=== PATIENT | male | born 1940 | race Caucasian/White ===

== ENCOUNTER 2016-11-18 15:31 | Inpatient (IN) ==
[2016-11-18] MEDS ORDERED: SODIUM CHLORIDE 0.9% 500 ML IV STA (16:10)
[2016-11-18] MEDS ORDERED: PANTOPRAZOLE 40 MG VIAL IV STA (16:10)
[2016-11-18] MEDS ORDERED: ONDANSETRON 4 MG/2 ML VIAL IV STA (16:10)
--- NOTE | 2016-11-18 16:16 | Emergency Department Note ---
Arrival - Arrival Chief Complaint: Non-Specific Stated Complaint: LOW BLOOD ED Nursing Triage Note: WAS CALLED BY DR FARMER TO COME TO ER DUE TO ABNORMAL LABS. HX GI BLEED FROM BEING ON ELIQUIS. PT DENIES HEMATOCHEZIA Mode of Arrival: Wheelchair Limitations: No Limitations Source: Patient Time Seen by Provider: 11/18/16 16:07 - History of Present Illness HPI Narrative: This 75-year-old white male presents with a history of recurrent severe anemia suspected from GI blood loss although a source is yet to be found per Dr. Farmer and the patient presents on referral from his office because of abnormal blood work. The patient reports significant problems with extreme weakness, dyspnea on exertion, intermittent rapid heart rates as well as a history of colon polypectomy in the distant past. In regards to his arrhythmias, the patient has chronic atrial fibrillation previously on Eliquis which had to be ceased because of recurrent blood loss. The patient denies any chest pain, diaphoresis, nausea, or vomiting in association with these episodes. He does relate that there is been difficulty in controlling his rhythm over the last several months although today he has not experienced any problems. At rest in bed he appears pale but in no acute medical distress. Onset (ago): month(s) (Patient presents with recurrent problems with blood count referred by Dr. Farmer's office) Allergies/Adverse Reactions: Allergies Allergy/AdvReac Type Severity Reaction Status Date / Time No Known Allergies Allergy Verified 11/18/16 15:38 Home Medications: Home Medications Medication Instructions Recorded Confirmed Type Acetaminophen Tab [Tylenol Tab] 500 mg PO BID 04/22/16 11/18/16 History Ascorbic Acid [Vitamin C] 1,000 mg PO QAM 04/22/16 11/18/16 History Aspirin [Ecotrin] 81 mg PO QAM 04/22/16 11/18/16 History Atenolol 12.5 mg PO QPM 04/22/16 11/18/16 History Atorvastatin Calcium 40 mg PO QPM 04/22/16 11/18/16 History Cyanocobalamin (Vitamin B-12) 1,000 mcg PO QAM 04/22/16 11/18/16 History [Vitamin B-12] Multivitamin [Multivitamins] 1 each PO QAM 04/22/16 11/18/16 History [place]-3 Fatty Acids [Fish Oil 2,000 mg PO QAM 04/22/16 11/18/16 History Concentrate] Furosemide [Furosemide] 20 mg PO 1400 11/18/16 11/18/16 History Furosemide [Furosemide] 40 mg PO QAM 11/18/16 11/18/16 History Magnesium Oxide [Magox 400] 400 mg PO QAM 11/18/16 11/18/16 History Metformin HCl [Metformin HCl] 1,000 mg PO BID 11/18/16 11/18/16 History Sitagliptin Phosphate [Januvia] 50 mg PO QAM 11/18/16 11/18/16 History Vitamin E Acetate [Vitamin E] 1,000 unit PO QAM 11/18/16 11/18/16 History Review of System - Review of System 12 point system: reviewed and no additional remarkable complaints except as stated - Review of System Constitutional: Present: as per HPI Respiratory: Present: as per HPI Cardiovascular: Present: as per HPI Gastrointestinal: Present: as per HPI Medical,Surgical,& Family Hx - Medical History Cardio: History of: Cardiac Dysrhythmia (atrial fibrillation onset 03/2016), Hypertension (5 years), Cardiovascular Problems (Pt was Cardioverted on 04/08/[address] Abraham in [place], [place]) Neurology: No history of: Seizures Endocrine: History of: Diabetes Mellitus (NIDDM) (20 years) Gastrointestinal: History of: Polyps (colonoscopy one year ago) - Surgical History Cardiac Surgeries: Sugical HX of: Cardiac Surgery (2007 aortocoronary bypass grafting) Orthopedic Surgeries: Surgical HX of;: Spinal Surgery (lumbar disc) - Family History Family History: Reports;: Family Diabetes, Family Heart Disease (mother, brother ), Family Hypertension (brother), Family Stroke (mother) - Social History Smoking Status: Never smoker Exam Physical Examination: GENERAL: Well developed, well nourished pale white male in no acute distress. HEENT: Normocephalic. No trauma. Moist but extremely pale mucous membranes. EOMI. PERRLA. ENT NML NECK: Supple. No adenopathy. CARDIAC: Irregular. No murmurs. Heart rate 70 CHEST: Clear to auscultation. No respiratory distress. O2 sat 97% ABDOMEN: Soft. Nontender. Active bowel sounds. EXTREMITIES: No trauma. Normal ROM. No pedal edema. SKIN: No diaphoresis. No rash. Extreme pale pallor. NEURO: Alert. Neuro intact. no focal deficits. Vital Signs: Vital Signs Temperature 100 F H 11/18/16 15:35 Pulse Rate 70 11/18/16 15:35 Respiratory Rate 18 11/18/16 16:35 Blood Pressure 117/68 11/18/16 15:35 O2 Sat by Pulse Oximetry 100 11/18/16 16:35 Course - Reevaluation(s) Reevaluation #1: Advised patient for need for hospitalization given his anemia, congestive heart failure, pneumonia. - Consultations Consultation #1: Discussed with hospitalist service who will admit for further evaluation treatment. Results - Labs CBC & BMP: 11/18/16 16:41 11/18/16 16:41 Labs: I reviewed the laboratory and noted the depressed hematocrit and borderline white blood cell count as well as negative cardiac's. - Diagnostic Findings Procedure: Chest x-ray: image reviewed by me, report reviewed by me ( Cardiomegaly with evidence of decompensation as well as left lower lobe infiltrate) Disposition Clinical Impression: Left lower lobe pneumonia, Recurrent severe anemia, CHF, Atrial fibrillation Case discussed with: patient, patient's family Disposition: Still a Patient Condition: Guarded Time of Disposition: 17:25
[2016-11-18] MEDS ORDERED: PANTOPRAZOLE 40 MG VIAL IV ONE (16:24)
[2016-11-18] MEDS ORDERED: ONDANSETRON 4 MG/2 ML VIAL ONE (16:24)
--- NOTE | 2016-11-18 16:30 | XRay Report ---
XR chest 1V portable Indication: Shortness of breath. Chest one view: Comparison 04/22/2016. Implanted electronic device is now present left chest wall. Mild cardiomegaly is worse than previous with increased diffuse interstitial prominence of the lungs. Additionally, asymmetric patchy infiltrate left lung base has progressed, but was somewhat present on the prior exam as well. Subpleural septal thickening noted. Impression: 1. CHF decompensation. 2. Left basilar pneumonia versus confluent fibrosis. PROCEDURE INTERPRETED AT [facility] DEPARTMENT OF RADIOLOGY Final Report Signed by: Mark Chery M.D.
[2016-11-18] MEDS ORDERED: LEVOFLOXACIN INJ 750 MG in PREMIX 1 EACH IV STA (16:46)
[2016-11-18 16:50] LABS: Basophils # 0.1 10*3/uL (0.0-0.2); Basophils % 0.5 % (0.0-0.8); Eosinophils # 0.4 10*3/uL (0.0-0.87); Eosinophils % 3.6 % (0.00-10.9); Hematocrit 24.4 VOL% (42.0-52.0); Hemoglobin 7.6 GM/DL (14.0-18.0); Immature Granulocytes % 0.4 %; Immature Granulocytes Absolute 0.04 #; Lymphocytes # 1.3 10*3/uL (1.4-4.0); Mean Corpuscular HGB Conc 31.1 GM/DL (32-36); Mean Corpuscular Hemoglobin 21 PG (27-34); Mean Corpuscular Volume 67.6 FL (87-102); Mean Platelet Volume 9.7 FL (9.6-12.0); Monocytes # 1.4 10*3/uL (0.11-0.8); NRBC # 0.02 10*3/uL; Neutrophils % 68.5 % (38.7-73.9); Platelet Count 349 T/CUMM (130-400); Red Blood Count 3.61 MC/CUMM (3.8-5.5); White Blood Count 10.2 T/CUMM (4-12)
[2016-11-18 17:12] LABS: INR 1.1; PT Patient Result 11.8 SECS; Partial Thromboplastin Time 30.3 SECS (0-40)
[2016-11-18] MEDS ORDERED: methylPREDNISolone SOD SUC 125 MG/2 ML VIAL IV STA (17:15)
[2016-11-18] MEDS ORDERED: ALBUTEROL/IPRATROPIUM 3 ML NEB RESP TX STA (17:15)
[2016-11-18 17:19] LABS: Alanine Aminotransferase 26 U/L (16-61); Albumin 2.9 G/DL (3.4-5.0); Alkaline Phosphatase 96 U/L (45-117); Aspartate Amino Transferase 18 U/L (0-37); Blood Urea Nitrogen 22 MG/DL (7-18); Calcium 8.7 MG/DL (8.5-10.1); Glucose 142 MG/DL (74-106); Osmolality,Calculated 268.5 MOS/KG (273-304); Potassium 3.6 MMOL/L (3.5-5.1); Sodium 132 MMOL/L (136-145); Troponin I Only 0.033 NG/ML (0.00-0.045)
[2016-11-18] MEDS ORDERED: methylPREDNISolone SOD SUC 125 MG/2 ML VIAL ONE (17:44)
[2016-11-18] MEDS ORDERED: LEVOFLOXACIN INJ 150 ML IV ONE (17:44)
[2016-11-18] MEDS ORDERED: SODIUM CHLORIDE 0.9% 250 ML IV PRN (18:03)
--- NOTE | 2016-11-18 18:13 | Hospitalist History & Physical ---
Assessment and Plan (1) Anemia Status: Acute Assessment and plan: In recent months, the patient has had multiple episodes of recurrent severe anemia that is highly suspected to be originating from a gastrointestinal source however, the source that she had to be found. The patient is followed in the outpatient setting by Dr. Sandro Lund. The patient's atrial fibrillation had been previously managed with the use of Eliquis however, due to recurrent blood loss his Eliquis has been discontinued. The patient reported a gradual onset of extreme weakness and dyspnea on exertion. The patient also reported intermittent episodes of rapid heartbeat in recent days. We will type and screen and transfuse blood products. We will consult gastroenterology to evaluate. Current Visit: No Qualifiers: Anemia type: other cause (2) Chronic atrial fibrillation Status: Chronic Assessment and plan: Patient has chronic atrial fibrillation. He had been previously managed with Eliquis but developed multiple issues of gastrointestinal bleeding without a clear source of origin. We will place the patient on the telemetry unit and monitor closely during the clinical encounter. Current Visit: No History of Present Illness Chief complaint: Abnormal labs History of present illness: This is a chronically ill 75-year-old male that presented to the ED at [facility] this afternoon for further evaluation of his abnormal labs. Patient has a medical history significant for hypertension, atrial fibrillation, [id number] diabetes mellitus, and colon polyps. Patient has a surgical history significant for coronary artery bypass grafting, internal cardiac monitoring device placement, colonoscopy, lumbar disc discectomy. In recent months, the patient has had multiple episodes of recurrent severe anemia that is highly suspected to be originating from a gastrointestinal source however, the source that she had to be found. The patient is followed in the outpatient setting by Dr. Sandro Lund. The patient' s atrial fibrillation had been previously managed with the use of Eliquis however, due to recurrent blood loss his Eliquis has been discontinued. The patient reported a gradual onset of extreme weakness and dyspnea on exertion. The patient also reported intermittent episodes of rapid heartbeat in recent days. The patient reports that he was contacted by Dr. Lund's office today and told that he is blood counts were low and that he needed to present to the ED for further evaluation. The patient was assessed at the time of ED presentation. The patient was noted to be febrile with a temperature recorded at 100.0. Labs were obtained which were remarkable for hemoglobin 7.6, hematocrit 24.4, sodium 132, chloride 97, BUN 22, creatinine 1.70, and glucose at 142. Chest x-ray reported congestive heart failure decompensation and left basilar pneumonia versus confluent fibrosis. After brief discussion with both Dr. Maldonado and Dr. Castelan, the patient will be admitted to the hospitalist service for continuation of care. A gastrointestinal consultation with Dr. Sandro Lund will be requested. The patient's home medications have been reviewed and reconciled. The patient's CODE STATUS has been discussed; the patient is a FULL CODE. Home Medications Medication Instructions Recorded Confirmed Type Acetaminophen Tab [Tylenol Tab] 500 mg PO BID 04/22/16 11/18/16 History Ascorbic Acid [Vitamin C] 1,000 mg PO QAM 04/22/16 11/18/16 History Aspirin [Ecotrin] 81 mg PO QAM 04/22/16 11/18/16 History Atenolol 12.5 mg PO QPM 04/22/16 11/18/16 History Atorvastatin Calcium 40 mg PO QPM 04/22/16 11/18/16 History Cyanocobalamin (Vitamin B-12) 1,000 mcg PO QAM 04/22/16 11/18/16 History [Vitamin B-12] Multivitamin [Multivitamins] 1 each PO QAM 04/22/16 11/18/16 History [place]-3 Fatty Acids [Fish Oil 2,000 mg PO QAM 04/22/16 11/18/16 History Concentrate] Furosemide [Furosemide] 20 mg PO 1400 11/18/16 11/18/16 History Furosemide [Furosemide] 40 mg PO QAM 11/18/16 11/18/16 History Magnesium Oxide [Magox 400] 400 mg PO QAM 11/18/16 11/18/16 History Metformin HCl [Metformin HCl] 1,000 mg PO BID 11/18/16 11/18/16 History Sitagliptin Phosphate [Januvia] 50 mg PO QAM 11/18/16 11/18/16 History Vitamin E Acetate [Vitamin E] 1,000 unit PO QAM 11/18/16 11/18/16 History Allergies Allergy/AdvReac Type Severity Reaction Status Date / Time No Known Allergies Allergy Verified 11/18/16 15:38 Medical,Surgical,& Family Hx - Medical History Cardio: History of: Cardiac Dysrhythmia (atrial fibrillation onset 03/2016), Hypertension (5 years), Cardiovascular Problems (Pt was Cardioverted on 04/08/[address] Abraham in [place], [place]) Neurology: No history of: Seizures Endocrine: History of: Diabetes Mellitus (NIDDM) (20 years) Gastrointestinal: History of: Polyps (colonoscopy one year ago) - Surgical History Cardiac Surgeries: Sugical HX of: Cardiac Surgery (2008 aortocoronary bypass grafting) Orthopedic Surgeries: Surgical HX of;: Spinal Surgery (lumbar disc) - Family History Family History: Reports;: Family Diabetes, Family Heart Disease (mother, brother ), Family Hypertension (brother), Family Stroke (mother) - Social History Smoking Status: Never smoker 12 point system: reviewed and no additional remarkable complaints except as stated Exam - Constitutional Vitals: Period Temp Pulse Resp BP Sys/Patino Pulse Ox Last 24 Hr 100 F 70 18-18 117/68 97-100 General appearance: normal weight, no acute distress - Head Head exam: Present: normal inspection, normocephalic, atraumatic - Eye Eye exam: Present: EOMI. Absent: conjunctival injection Pupils: Present: KEM, normal accommodation - ENT ENT exam: Present: normal exam, normal external ear exam, normal oropharynx - Neck Neck exam: Present: normal inspection. Absent: lymphadenopathy, meningismus, thyromegaly - Respiratory Respiratory exam: Present: clear to auscultation bilaterally. Absent: rales, rhonchi, stridor, wheezes - Cardiovascular Cardiovascular exam: Present: regular rate and rhythm - GI/Abdominal GI/Abdominal exam: Present: normal bowel sounds, distended, soft - Extremities Exam Extremities exam: Present: normal inspection, normal capillary refill, full ROM. Absent: edema - Back Exam Back exam: Present: normal inspection - Neurological Exam Neurological exam: Present: alert, oriented X3, CN II-XII intact - Psychiatric Psychiatric exam: Present: normal affect, normal mood - Skin Skin exam: Present: warm, pallor Results - Labs CBC & BMP: 11/18/16 16:41 11/18/16 16:41 Lab Results: I have reviewed the past 24 hour labs
[2016-11-18] MEDS ORDERED: ONDANSETRON 4 MG/2 ML VIAL IV PRN (18:59)
[2016-11-18] MEDS: metFORMIN 500 MG TABLET PO SCH (21:24)
[2016-11-18] MEDS: ACETAMINOPHEN 500 MG TABLET PO SCH (21:25)
[2016-11-18] MEDS: ATORVASTATIN 40 MG TABLET PO SCH (21:25)
[2016-11-18] MEDS: ATENOLOL 25 MG TABLET PO SCH (21:28)
[2016-11-19 06:14] LABS: Basophils % 0.1 % (0.0-0.8); Hematocrit 24.6 VOL% (42.0-52.0); Hemoglobin 7.6 GM/DL (14.0-18.0); Immature Granulocytes % 1.3 %; Immature Granulocytes Absolute 0.15 #; Lymphocytes # 0.5 10*3/uL (1.4-4.0); Lymphocytes % 4.3 % (21.2-54.2); Mean Corpuscular HGB Conc 30.9 GM/DL (32-36); Mean Corpuscular Hemoglobin 22 PG (27-34); Mean Corpuscular Volume 70.1 FL (87-102); Mean Platelet Volume 9.8 FL (9.6-12.0); Monocytes # 0.1 10*3/uL (0.11-0.8); Monocytes % 0.6 % (1.7-12.7); Neutrophils # 10.8 10*3/uL (1.4-7.4); Neutrophils % 93.7 % (38.7-73.9); Platelet Count 318 T/CUMM (130-400); Red Blood Count 3.51 MC/CUMM (3.8-5.5); Red Cell Distribution Width 18.4 % (9.3-17.3); White Blood Count 11.5 T/CUMM (4-12)
--- NOTE | 2016-11-19 06:40 | Gastrointestinal Consult Note ---
Assessment and Plan (1) Iron deficiency anemia Status: Chronic Assessment and plan: Unfortunately I am not completely sure why this is occurring, he could be a problem with iron absorption, the fact that we discontinued his iron as an outpatient, the fact that he remains on aspirin with ongoing GI losses that cannot be appreciated by upper endoscopy or lower endoscopy or capsule is a possibility as well. The patient could have a blood dyscrasia with his bone marrow as well. He appears to be classically iron deficient. We will check this with iron studies once more. Suggest an iron infusion this admission in addition to the blood transfusion. Once iron studies are back we will order a iron dextran infusion prior to going home. Would like to get his old records from [place] to see if things have dropped since his fiberglass laminator saw him last, last week. We discontinued the patient from his Eliquis and had hoped that this would take care of the problem after 08/14/16, apparently did not. Again see the HPI for full GI workup up to this point including upper and lower endoscopy and capsule endoscopy. Current Visit: No (2) Gastritis determined by endoscopy Status: Acute Assessment and plan: See HPI above, this is being treated with Protonix on a daily basis. His medication list does not reflect this but the patient states that he is taking this at home. We will discontinue aspirin now. Current Visit: No (3) Personal history of colonic polyps Status: Acute Assessment and plan: The patient does not require repeat colonoscopy until 2019 for the adenoma seen. Previous colonoscopy did not show any bleeding lesions. Current Visit: No (4) Chronic GERD Status: Chronic Assessment and plan: Again this is being treated with Protonix on a daily basis. Current Visit: No History of Present Illness Chief complaint: Unexplained drop in patient's hematocrit after unremarkable GI workup History of present illness: Mr. Colin is a 75 year old male whose last hematocrit last checked on 05/14/16, to 35.1% with a hemoglobin of 11.5 g/dL and he was stopped off of his iron and continue on his Prilosec daily controlling his reflux symptoms. Previous hematocrit has remained at 34.1% on 07/28/[address] Zaidi. The patient's hematocrit dropped down to 27.7% with a hemoglobin of 8.8 g/dL back on 08/14/16 with an MCV of 83.7. We asked him to return again today for recheck. He has not noticed any further rectal bleeding. He was restarted on his Eliquis in May by his fiberglass laminator Dr. Abraham in [place]. He does have some nonspecific gastritis as well as mild duodenitis that was shown to be negative for Helicobacter pylori and celiac sprue. His last upper endoscopy was 04/25/16 and his last colonoscopy had been on 06/08/15 and showed adenomatous polyps that will require repeat colonoscopy in 3 years i.e. May 2018. Tubular adenomas were noted in the cecum, descending and sigmoid regions of the colon. There was no bleeding noted. The patient had his last capsule endoscopy done on 05/19/16 at which time slow stomach emptying was noted at 2 hours and 15 minutes with moderate gastritis and metaplasia in the stomach but otherwise normal-appearing small bowel throughout its entirety. At this point we are not sure with the bleeding is coming from. We can go up on his acid suppression but there is little else to do at this point, other than stopping the Eliquis if his hematocrit has dropped. It appears the patient has been started on his aspirin again and this could certainly be discontinued. He will need to be restarted on his iron with either ferrous gluconate 325 mg 3 times daily or Nu-iron 150 mg po BID, and will probably need to take this for the rest of his life. Possible causes include Dieulafoy's lesion and ongoing upper GI bleeding from his gastritis possibly, although this was pretty mild on his check during upper endoscopy and capsule endoscopy. It might be worthwhile to consider bone marrow biopsy as well since he has not seen any jose bleeding and has dropped his hematocrit down this far, especially now that his stools been checked and found to be heme negative and if the reticulocyte count and iron stores blood tests we do today are normal are not elevated and low respectively. Home Medications Medication Instructions Recorded Confirmed Type Acetaminophen Tab [Tylenol Tab] 500 mg PO BID 04/22/16 11/18/16 History Ascorbic Acid [Vitamin C] 1,000 mg PO QAM 04/22/16 11/18/16 History Aspirin [Ecotrin] 81 mg PO QAM 04/22/16 11/18/16 History Atenolol 12.5 mg PO QPM 04/22/16 11/18/16 History Atorvastatin Calcium 40 mg PO QPM 04/22/16 11/18/16 History Cyanocobalamin (Vitamin B-12) 1,000 mcg PO QAM 04/22/16 11/18/16 History [Vitamin B-12] Multivitamin [Multivitamins] 1 each PO QAM 04/22/16 11/18/16 History [place]-3 Fatty Acids [Fish Oil 2,000 mg PO QAM 04/22/16 11/18/16 History Concentrate] Furosemide [Furosemide] 20 mg PO 1400 11/18/16 11/18/16 History Furosemide [Furosemide] 40 mg PO QAM 11/18/16 11/18/16 History Magnesium Oxide [Magox 400] 400 mg PO QAM 11/18/16 11/18/16 History Metformin HCl [Metformin HCl] 1,000 mg PO BID 11/18/16 11/18/16 History Sitagliptin Phosphate [Januvia] 50 mg PO QAM 11/18/16 11/18/16 History Vitamin E Acetate [Vitamin E] 1,000 unit PO QAM 11/18/16 11/18/16 History Allergies Allergy/AdvReac Type Severity Reaction Status Date / Time No Known Allergies Allergy Verified 11/18/16 15:38 Medical,Surgical,& Family Hx - Medical History Cardio: History of: Cardiac Dysrhythmia (atrial fibrillation onset 03/2016), Hypertension (5 years), Cardiovascular Problems (Pt was Cardioverted on 04/08/[address] Abraham in [place], [place]) Neurology: No history of: Seizures Endocrine: History of: Diabetes Mellitus (NIDDM) (20 years) Respiratory: History of: Pneumonia Gastrointestinal: History of: Polyps (colonoscopy one year ago) Musculoskeletal: History of: Back/Neck Problems (back surgery at 18) Hematology: History of: Anemia - Surgical History Cardiac Surgeries: Sugical HX of: Cardiac Surgery (2008 aortocoronary bypass grafting) Orthopedic Surgeries: Surgical HX of;: Spinal Surgery (lumbar disc) - Family History Family History: Reports;: Family Diabetes, Family Heart Disease (mother, brother ), Family Hypertension (brother), Family Stroke (mother) - Social History Smoking Status: Former smoker Frequency of Alcohol Use: Frequently Type of Drug Use: None Review of systems: Constitutional: Denies fever, chills, nausea, and vomiting. Positive for significant fatigue and some dizziness Eyes: Denies dry eyes, and scleral icterus HENT: Denies headaches Cardiovascular: Denies acute chest pain and claudication Respiratory: Mild dyspnea on exertion but no resting shortness of breath, wheezing, and difficulty breathing, denies cough Gastrointestinal: As noted in the HPI Genitourinary: Denies dysuria and hematuria Neurologic: Denies vision loss, and loss of sensation Musculoskeletal: He does have some minimal joint stiffness, and muscular weakness, no swelling Psychiatric: Denies depression and sofía symptoms Heme-Lymph: Denies easy bruising, lymph node enlargement or tenderness, night sweats, excessive bleeding Allergies-immunologic: Denies pruritus and rhinorrhea Exam - Constitutional Vitals: Period Temp Pulse Resp BP Sys/Patino Pulse Ox Last 24 Hr 98 F-100 F 66-75 16-20 109-135/55-75 95-100 General appearance: no acute distress Exam: Constitutional: Well-developed, well-nourished, alert, and in no acute distress Head and face: Head: Normocephalic atraumatic Eyes: Conjunctiva without injection, no gross scleral icterus, pupils equal and round bilaterally Ears: Intact to conversation in both ears Nose: External appearance is normal, nares patent Mouth: Oral mucous membranes moist without erythema dentition noted to be without erosion Neck: Normal appearance, no masses or tenderness, trachea midline Thyroid: Gland midline and appropriate size for age Respiratory: Normal respiratory effort, clear to auscultation without wheezes, rhonchi or rales Cardiovascular: Regular rate and rhythm, normal S1, S2, the exam is without rubs, murmurs or gallops. Gastrointestinal: Nontender to palpation, abdomen mildly distended with gas but normal active bowel sounds, tone normal without rigidity or guarding, no masses present, no hepatomegaly, no spleen tip felt. Rectal examination shows good tone no external fissures or fistulas stool present brown guaiac negative Lymphatic: Neck without adenopathy, axilla without lymphadenopathy present Musculoskeletal: Right and left lower extremities without evidence of edema Skin and subcutaneous tissue: No rashes or ulcerations noted, normal skin turgor, digits and nails without clubbing/cyanosis/deformities. Neurologic: The patient is grossly oriented to person place and time, cranial nerves show tongue movements are normal with normal tongue extrusion midline, light touch sensation is intact. Psychiatric: No hallucinations or delusions are present, does not appear depressed Results - Labs CBC & BMP: 11/19/16 05:56 11/18/16 16:41 Quality Measures - VTE Contraindication to Pharmacological VTE Prophylaxis: Active Bleeding
[2016-11-19 06:46] LABS: Band Neutrophils 2 % (0-10); Burr Cells Slight; Giant Platelets Few; Hypochromasia 1+; Lymphocytes 6 % (20-55); Nucleated Red Blood Cells 1 (0-5); Ovalocytes Slight; Platelet Estimate Adequate; Segmented Neutrophils 92 % (50-85); Total Cells Counted 100
[2016-11-19 06:47] LABS: Microcytosis Slight
[2016-11-19 06:51] LABS: Calcium 8.5 MG/DL (8.5-10.1); Magnesium 2.1 MG/DL (1.8-2.4); Osmolality,Calculated 274.5 MOS/KG (273-304); Potassium 4.1 MMOL/L (3.5-5.1); Troponin I Only 0.021 NG/ML (0.00-0.045)
[2016-11-19 07:19] LABS: % Iron Saturation 2.9 % (18-50)
[2016-11-19] MEDS ORDERED: ASPIRIN EC 81 MG TABLET PO SCH (09:00)
[2016-11-19] MEDS: PANTOPRAZOLE 40 MG TABLET PO SCH (09:09)
[2016-11-19] MEDS: FUROSEMIDE 40 MG TABLET PO SCH ×2 (09:09→15:58)
[2016-11-19] MEDS: MULTIVITAMIN (CENTRUM) TABLET PO SCH (09:09)
[2016-11-19] MEDS: CYANOCOBALAMIN 500 MCG TABLET PO SCH (09:10)
[2016-11-19] MEDS: OMEGA 3 ACID ETHYL ESTERS 1 GM CAPSULE PO SCH (09:10)
[2016-11-19] MEDS: ASCORBIC ACID 500 MG TABLET PO SCH (09:10)
[2016-11-19] MEDS: ACETAMINOPHEN 500 MG TABLET PO SCH ×2 (09:10→21:12)
[2016-11-19] MEDS: VITAMIN E 1000 UNIT CAPSULE PO SCH (09:10)
[2016-11-19] MEDS: sitaGLIPtin 25 MG TABLET PO SCH (09:11)
[2016-11-19] MEDS: metFORMIN 500 MG TABLET PO SCH ×2 (09:11→21:12)
[2016-11-19] MEDS: MAGNESIUM OXIDE 400 MG TABLET PO SCH (09:12)
--- NOTE | 2016-11-19 12:43 | Hospitalist Progress Note ---
Assessment and Plan (1) Iron deficiency anemia Status: Chronic Assessment and plan: Dr Lund has ordered an infusion of iron. He has received 1 of 2 units of PRBC at this time. 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 Stopped Eliquis in july at time of GIB. Stopping asa today. He takes PPI at home. Consider outpatient heme workup. afib is rate controlled. Current Visit: No (2) Chronic atrial fibrillation Status: Chronic Current Visit: No (3) Personal history of colonic polyps Status: Acute Current Visit: No (4) Chronic GERD Status: Chronic Current Visit: No (5) Diabetes Status: Chronic Current Visit: No Hospitalist: Subjective Interval history: Mr Colin was feeling well when I was him this morning. He reported being hungry and I have ordered a diet for him since he will not have procedures today. He has had some dizziness intermittently prior to admission which he ascribed to his afib, but was able to go to [place] on business yesterday without a problem. He came to the hospital when he got the message from Dr Rosa to go to hospital for anemia. He has had exhaustive GI work up a few months ago. Stool is guaiac negative here and he has not seen any blood in his stool. He may need hematology eval as outpatient. Exam - Constitutional Vitals: Period Temp Pulse Resp BP Sys/Patino Pulse Ox Last 24 Hr 97 F-100 F 60-75 16-20 109-146/55-79 95-100 General appearance: normal weight, no acute distress - Eye Eye exam: Present: EOMI. Absent: scleral icterus - Respiratory Respiratory exam: Present: clear to auscultation bilaterally - Cardiovascular Cardiovascular exam: Present: regular rate and rhythm - GI/Abdominal GI/Abdominal exam: Present: normal bowel sounds, soft. Absent: tenderness - Extremities Exam Extremities exam: Absent: edema Results - Labs CBC & BMP: 11/19/16 05:56 11/19/16 05:56 Lab Results: I have reviewed the past 24 hour labs Quality Measures - VTE Contraindication to Pharmacological VTE Prophylaxis: Active Bleeding
[2016-11-19 14:58] LABS: Hemoglobin 8.3 GM/DL (14.0-18.0)
[2016-11-19] MEDS ORDERED: IRON DEXTRAN 25 MG in SYRINGE 1 EACH IV ONE (17:30)
[2016-11-19] MEDS ORDERED: IRON DEXTRAN 2,000 MG in SODIUM CHLORIDE 0.9% 500 ML IV ONE (17:30)
[2016-11-19] MEDS: ATENOLOL 25 MG TABLET PO SCH (18:09)
[2016-11-19] MEDS: ATORVASTATIN 40 MG TABLET PO SCH (18:09)
--- NOTE | 2016-11-20 07:00 | Gastrointestinal Progress Note ---
Assessment and Plan (1) Iron deficiency anemia Status: Chronic Assessment and plan: Unfortunately I am not completely sure why this is occurring, he could be a problem with iron absorption, the fact that we discontinued his iron as an outpatient, the fact that he remains on aspirin with ongoing GI losses that cannot be appreciated by upper endoscopy or lower endoscopy or capsule is a possibility as well. The patient could have a blood dyscrasia with his bone marrow as well. He appears to be classically iron deficient. We will check this with iron studies once more. Suggest an iron infusion this admission in addition to the blood transfusion. Once iron studies are back we will order a iron dextran infusion prior to going home. 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 We discontinued the patient from his Eliquis and had hoped that this would take care of the problem after 08/14/16, apparently did not. Again see the HPI for full GI workup up to this point including upper and lower endoscopy and capsule endoscopy. 11/20/16--Iron studies were quite low with a iron saturation of only 3%. Again I am not completely sure why this is occurring given the findings from upper endoscopy, capsule endoscopy and colonoscopy. I am going to write him a prescription for both Nexium which is stronger than the omeprazole that he is on as well as a Nu-iron to be taken for the next 3 months. I am hoping that between the iron dextran infusion in the Nu-Iron should be able to maintain his iron saturation, we will recheck him in 3 months likely. We will see the patient back in 1 month in my clinic to recheck his hematocrit at that time. The prescriptions are in the front of the chart. Will sign off at this time as he is stable from a GI standpoint for discharge. If he is continued to lose blood when I see him next, I may consider repeating the upper endoscopy. Current Visit: No (2) Gastritis determined by endoscopy Status: Acute Assessment and plan: See HPI above, this is being treated with Protonix on a daily basis. His medication list does not reflect this but the patient states that he is taking this at home. We will discontinue aspirin now. 11/20/16--Patient needs to be left off his aspirin and Eliquis, and start taking the Nexium instead of his omeprazole and restart iron in the form of Nu-iron Current Visit: No (3) Personal history of colonic polyps Status: Acute Assessment and plan: The patient does not require repeat colonoscopy until 2019 for the adenoma seen. Previous colonoscopy did not show any bleeding lesions. 11/20/16--As above. Current Visit: No (4) Chronic GERD Status: Chronic Assessment and plan: Again this is being treated with omeprazole on a daily basis. 11/20/16--advance this patient to Nexium 40 mg p.o. 30 minutes prior to suppertime. Prescription written and left in the front of the chart for the patient's discharge. Current Visit: No Gastroenterology - PN: Subj Interval history: Appreciate Dr. Mendoza getting the iron dextran and orders for this patient and infused. He tolerated the infusion well, he feels slightly under the weather from his pneumonia and has a slight wheeze this more but is eating well and defecating well. His hematocrit improved from 24% to 27% with the blood transfusion. From a GI standpoint he can likely be discharged at this time. Exam (Progress Note) - Constitutional Vitals: Period Temp Pulse Resp BP Sys/Patino Pulse Ox Last 24 Hr 97 F-98.4 F 55-70 16-94 106-146/55-79 94-100 General appearance: no acute distress - Head Head exam: Present: normocephalic - Eye Eye exam: Present: EOMI - Respiratory Respiratory exam: Present: wheezes - Cardiovascular Cardiovascular exam: Present: regular rate and rhythm - GI/Abdominal GI/Abdominal exam: Present: normal bowel sounds, soft. Absent: distended, guarding, tenderness, rebound - Extremities Exam Extremities exam: Absent: edema - Neurological Exam Neurological exam: Present: alert, oriented X3 - Psychiatric Psychiatric exam: Present: normal affect, normal mood - Skin Skin exam: Present: warm Results - Labs CBC & BMP: 11/19/16 14:44 11/19/16 05:56
[2016-11-20] MEDS: ASCORBIC ACID 500 MG TABLET PO SCH (09:19)
[2016-11-20] MEDS: CYANOCOBALAMIN 500 MCG TABLET PO SCH (09:19)
[2016-11-20] MEDS: MULTIVITAMIN (CENTRUM) TABLET PO SCH (09:19)
[2016-11-20] MEDS: ACETAMINOPHEN 500 MG TABLET PO SCH (09:20)
[2016-11-20] MEDS: sitaGLIPtin 25 MG TABLET PO SCH (09:20)
[2016-11-20] MEDS: MAGNESIUM OXIDE 400 MG TABLET PO SCH (09:20)
[2016-11-20] MEDS: FUROSEMIDE 40 MG TABLET PO SCH ×2 (09:20→15:19)
[2016-11-20] MEDS: OMEGA 3 ACID ETHYL ESTERS 1 GM CAPSULE PO SCH (09:20)
[2016-11-20] MEDS: metFORMIN 500 MG TABLET PO SCH (09:20)
[2016-11-20] MEDS: PANTOPRAZOLE 40 MG TABLET PO SCH (09:20)
[2016-11-20] MEDS: VITAMIN E 1000 UNIT CAPSULE PO SCH (09:21)
--- NOTE | 2016-11-20 10:15 | Discharge Summary ---
Hospital Course - Hospital Course Hospital Course: 75-year-old white male with history of hypertension, hyperlipidemia, CHF, A. fib not on anticoagulation, history of severe anemia and diabetes admitted by the hospitalist service on 11/18/[address] Lund has followed the patient previously and he was consulted to assist. Dr. Lund has performed upper endoscopy, capsule endoscopy and colonoscopy on the patient with no clear findings of anemia. Patient's iron studies are low with an iron saturation of only 3%. Patient did receive an iron transfusion on this admission in addition to blood transfusion. Dr. Lund has recommended Nexium and Nu-iron to be taken for the next [address] Lund will follow him up in his clinic in 1 month with an H&H at that time. Patient was on Eliquis at one time but this has been stopped. He also continues to take an aspirin and this is also been held. Patient feels better and he has had no signs of bleeding. He will be discharged home with medicines and follow-up with Dr. Lund as mentioned above. Would also recommend a follow-up with a breast worker in 1-2 weeks for evaluation. We will set this up upon discharge. Complete discharge instructions were given to the patient and his in the room. Care coordination, chart review, and completed discharge paperwork took approximately 42 minutes. - Time spent with patient Time with patient DS: Greater than 30 minutes Diagnosis - Discharge Diagnosis (1) Chronic atrial fibrillation Status: Chronic (2) Iron deficiency anemia Status: Acute (3) Diabetes Status: Chronic Discharge Plan - Discharge Data Disposition: Disch To Home/Self Care Condition at Discharge: Stable Discharge Diet: diabetic diet Activity: resume usual activities as tolerated Driving: no restrictions Contact your physician if you experience:: fever over 101, Shortness of breath, Bleeding - Discharge Medications New Esomeprazole Magnesium [Nexium] 40 mg PO DAILY #120 capsule Continue Acetaminophen Tab [Tylenol Tab] 500 mg PO BID Ascorbic Acid [Vitamin C] 1,000 mg PO QAM Cyanocobalamin (Vitamin B-12) [Vitamin B-12] 1,000 mcg PO QAM Multivitamin [Multivitamins] 1 each PO QAM Furosemide 20 mg PO 1400 Metformin HCl 1,000 mg PO BID Vitamin E Acetate [Vitamin E] 1,000 unit PO QAM [place]-3 Fatty Acids [Fish Oil Concentrate] 2,000 mg PO QPM Sitagliptin Phosphate [Januvia] 25 mg PO QAM Discontinued Aspirin [Ecotrin] 81 mg PO QPM - Follow Up or Referral Follow Up: Sandro Lund MD [Physician] - 1 Month (w hgb/hct) [facility] [Provider Group] (follow up w any breast worker in 1-2wks for severe anemia) - Forms/Instructions Exam - Constitutional Vitals: Period Temp Pulse Resp BP Sys/Patino Pulse Ox Last 24 Hr 97 F-98.4 F 45-66 16-94 106-146/53-79 92-100 Exam: 75-year-old white male, no acute distress, alert and oriented Chest clear CV irregularly irregular Abdomen soft and nontender Extremities no edema Discharge Results Procedures and tests throughout hospitalization: Pending Orders 11/18/16 18:07 Blood Culture Stat Labs on day of discharge: Labs from last 24 hours 11/20/16 11/19/16 11/19/16 07:36 20:12 16:11 Hgb Hct POC Glucose 153 H 238 H 245 H Blood Type Antibody Screen Crossmatch Blood Bank Comment 11/19/16 11/19/16 11/18/16 14:44 12:01 16:41 Hgb 8.3 L Hct 27.0 L POC Glucose 289 H Blood Type Cancelled Antibody Screen Cancelled Crossmatch See Detail Blood Bank Comment Cancelled Preliminary micro results at discharge 11/18/16 18:07 Blood Culture - Preliminary Blood No growth at 1 day 11/18/16 18:09 Blood Culture - Preliminary Blood No growth at 1 day DS: Provider Date of admission: 11/18/16 17:30 Primary care physician: Troy Zaidi DO Attending physician on admission: Tay Renee MD Discharging clinician: RADHA Castellano Expected date of discharge: 11/20/16
[2016-11-20 11:54] VITALS: BP 125/60
== END 2016-11-20 14:37 | disposition home or self-care (01) | DRG 811 ==
LOC: N.ED 15:31 → SUATTDRO 17:30 → N.EDINP 17:30 → N.TELEN 19:48
PROVIDERS: ADMIT Family Medicine; ATTEND Internal Medicine

== ENCOUNTER 2018-03-28 02:53 | Inpatient (IN) ==
[2018-03-28] MEDS ORDERED: FUROSEMIDE 40 MG/4 ML VIAL IV STA (03:25)
[2018-03-28 03:33] LABS: Basophils # 0.1 10*3/uL (0.0-0.2); Basophils % 0.7 % (0.0-0.8); Eosinophils # 0.2 10*3/uL (0.0-0.87); Eosinophils % 2.6 % (0.00-10.9); Hematocrit 23.7 VOL% (42.0-52.0); Hemoglobin 6.8 GM/DL (14.0-18.0); Immature Granulocytes % 0.5 %; Immature Granulocytes Absolute 0.04 #; Lymphocytes # 0.9 10*3/uL (1.4-4.0); Lymphocytes % 10.6 % (21.2-54.2); Mean Corpuscular HGB Conc 28.7 GM/DL (32-36); Mean Corpuscular Hemoglobin 19 PG (27-34); Mean Corpuscular Volume 65.1 FL (87-102); Mean Platelet Volume 9.6 FL (9.6-12.0); Monocytes % 11.5 % (1.7-12.7); NRBC # 0.04 10*3/uL; Neutrophils # 6.3 10*3/uL (1.4-7.4); Neutrophils % 74.1 % (38.7-73.9); Platelet Count 256 T/CUMM (130-400); Red Blood Count 3.64 MC/CUMM (3.8-5.5); Red Cell Distribution Width 18.4 % (9.3-17.3); White Blood Count 8.5 T/CUMM (4-12)
[2018-03-28 03:52] LABS: Albumin 2.8 G/DL (3.4-5.0); Bilirubin,Total 0.5 MG/DL (0.2-1.0); Calcium 8.6 MG/DL (8.5-10.1); Osmolality,Calculated 263.9 MOS/KG (273-304); Potassium 4.6 MMOL/L (3.5-5.1); Total Protein 7.3 G/DL (6.4-8.3)
[2018-03-28 03:58] LABS: Hypochromasia 2+
[2018-03-28 03:59] LABS: Acanthocytes Few; Schistocytes Few
[2018-03-28 04:00] LABS: Elliptocytes 1+; Poikilocytosis 2+
[2018-03-28 04:11] LABS: Anisocytosis 2+
[2018-03-28 04:12] LABS: Microcytosis 1+; Platelet Estimate Normal; Target Cells Few
[2018-03-28 06:40] LABS: Apearance,Urine CLEAR (Clear); Bacteria,Urine Occasional /HPF (Few); Bilirubin,Urine Negative (Negative); Blood, Urine Negative (Negative); Glucose,Urine (UA) Negative (Negative); Ketones,Urine Negative (Negative); Mucus,Urine Occasional /LPF (Occasional); Nitrite,Urine Negative (Negative); Protein,Urine Negative; RBC,Urine 2 /HPF (0-4); Urine Color Yellow (Yellow); Urine Specific Gravity 1.005 (1.001-1.035); Urine Urobilinogen < 2.0 EU/DL (0.2-1.0); WBC,Urine <1 /HPF (0-6)
[2018-03-28 06:56] LABS: Barbiturates Screen,Urine Negative (Negative); Benzodiazepines Screen,Urine Negative (Negative); Cannabinoid Screen,Urine Positive (Negative); Opiate Screen,Urine Negative (Negative); Phencyclidine Screen,Urine Negative (Negative)
[2018-03-28] MEDS ORDERED: DEXTROSE 50% 25 GM/50 ML VIAL IV PRN ×2 (08:18→14:37)
[2018-03-28] MEDS ORDERED: ACETAMINOPHEN 325 MG TABLET PO PRN (08:18)
[2018-03-28] MEDS ORDERED: GLUCAGON 1 MG VIAL IM PRN ×2 (08:18→14:37)
[2018-03-28] MEDS ORDERED: SODIUM CHLORIDE 0.9% 1,000 ML IV PRN (08:22)
[2018-03-28] MEDS ORDERED: chlordiazePOXIDE 10 MG CAPSULE PO PRN (08:28)
[2018-03-28] MEDS ORDERED: PANTOPRAZOLE 40 MG TABLET PO SCH (09:00)
[2018-03-28] MEDS ORDERED: MULTIVITAMIN (CENTRUM) TABLET PO SCH (09:00)
[2018-03-28] MEDS: THIAMINE 200 MG/2 ML VIAL IV SCH (10:35)
[2018-03-28] MEDS: INSULIN REGULAR 100 UNIT/ML SUBCUT SCH ×3 (16:43→22:03)
[2018-03-28] MEDS: PANTOPRAZOLE 40 MG TABLET PO SCH (16:44)
[2018-03-28 17:22] LABS: Basophils # 0.1 10*3/uL (0.0-0.2); Basophils % 0.6 % (0.0-0.8); Eosinophils # 0.2 10*3/uL (0.0-0.87); Eosinophils % 2.3 % (0.00-10.9); Hematocrit 25.6 VOL% (42.0-52.0); Hemoglobin 7.5 GM/DL (14.0-18.0); Immature Granulocytes % 0.3 %; Immature Granulocytes Absolute 0.03 #; Lymphocytes # 0.8 10*3/uL (1.4-4.0); Mean Corpuscular HGB Conc 29.3 GM/DL (32-36); Mean Corpuscular Hemoglobin 19 PG (27-34); Mean Corpuscular Volume 65.3 FL (87-102); Mean Platelet Volume 9.7 FL (9.6-12.0); Monocytes # 1.2 10*3/uL (0.11-0.8); Monocytes % 13.5 % (1.7-12.7); NRBC # 0.02 10*3/uL; Neutrophils # 6.5 10*3/uL (1.4-7.4); Neutrophils % 74.3 % (38.7-73.9); Platelet Count 261 T/CUMM (130-400); Red Blood Count 3.92 MC/CUMM (3.8-5.5); Red Cell Distribution Width 19.9 % (9.3-17.3); White Blood Count 8.8 T/CUMM (4-12)
[2018-03-28 17:52] LABS: Folate > 24.0 NG/ML (5.4-24.0); Vitamin B12 1967 PG/ML (211-911)
[2018-03-28 18:17] LABS: Anisocytosis 1+; Hypochromasia 1+; Poikilocytosis 1+; Target Cells 1+
[2018-03-28 18:18] LABS: Elliptocytes Few; Platelet Estimate Adequate; Schistocytes Few
[2018-03-28 18:25] LABS: Sedimentation Rate-Westergren 24 MM/HR (0-20)
[2018-03-28] MEDS: GABAPENTIN 100 MG CAPSULE PO SCH (21:39)
[2018-03-28] MEDS: MAGNESIUM OXIDE 400 MG TABLET PO SCH (21:39)
[2018-03-28] MEDS: OMEGA 3 ACID ETHYL ESTERS 1 GM CAPSULE PO SCH (21:39)
[2018-03-28] MEDS: metFORMIN 500 MG TABLET PO SCH (21:39)
[2018-03-28] MEDS: ACETAMINOPHEN 500 MG TABLET PO SCH (21:40)
[2018-03-28] MEDS: POTASSIUM CHLORIDE 10 MEQ TABLET PO SCH (21:40)
[2018-03-29 05:29] LABS: Basophils # 0.1 10*3/uL (0.0-0.2); Eosinophils # 0.3 10*3/uL (0.0-0.87); Eosinophils % 3.5 % (0.00-10.9); Hematocrit 26.2 VOL% (42.0-52.0); Hemoglobin 7.8 GM/DL (14.0-18.0); Immature Granulocytes % 0.4 %; Immature Granulocytes Absolute 0.03 #; Lymphocytes # 1.1 10*3/uL (1.4-4.0); Lymphocytes % 12.7 % (21.2-54.2); Mean Corpuscular HGB Conc 29.8 GM/DL (32-36); Mean Corpuscular Hemoglobin 20 PG (27-34); Mean Corpuscular Volume 66.3 FL (87-102); Mean Platelet Volume 9.7 FL (9.6-12.0); Monocytes # 1.1 10*3/uL (0.11-0.8); Monocytes % 13.2 % (1.7-12.7); NRBC # 0.02 10*3/uL; Neutrophils # 5.7 10*3/uL (1.4-7.4); Neutrophils % 69.2 % (38.7-73.9); Platelet Count 240 T/CUMM (130-400); Red Blood Count 3.95 MC/CUMM (3.8-5.5); Red Cell Distribution Width 20.6 % (9.3-17.3); White Blood Count 8.2 T/CUMM (4-12)
[2018-03-29 06:00] LABS: Calcium 8.9 MG/DL (8.5-10.1); Potassium 3.8 MMOL/L (3.5-5.1)
[2018-03-29] MEDS ORDERED: sitaGLIPtin 100 MG TABLET PO SCH (09:00)
[2018-03-29] MEDS ORDERED: ATENOLOL 25 MG TABLET PO SCH (09:00)
[2018-03-29] MEDS ORDERED: GLIMEPIRIDE 2 MG TABLET PO SCH (09:00)
[2018-03-29 09:04] LABS: Hemoglobin A1 (Alkaline) 97.8 % (96.5-98.5); Hemoglobin A2 (Alkaline) 2.2 % (1.5-3.5)
[2018-03-29] MEDS: THIAMINE 200 MG/2 ML VIAL IV SCH (10:08)
[2018-03-29] MEDS: ATORVASTATIN 40 MG TABLET PO SCH (10:09)
[2018-03-29] MEDS: CYANOCOBALAMIN 500 MCG TABLET PO SCH (10:09)
[2018-03-29] MEDS: MULTIVITAMIN (CENTRUM) TABLET PO SCH (10:09)
[2018-03-29] MEDS: ACETAMINOPHEN 500 MG TABLET PO SCH ×2 (10:09→22:30)
[2018-03-29] MEDS: ASCORBIC ACID 500 MG TABLET PO SCH (10:09)
[2018-03-29] MEDS: ASPIRIN EC 81 MG TABLET PO SCH (10:10)
[2018-03-29] MEDS: POTASSIUM CHLORIDE 10 MEQ TABLET PO SCH ×2 (10:10→22:29)
[2018-03-29] MEDS: GABAPENTIN 100 MG CAPSULE PO SCH ×2 (10:10→22:29)
[2018-03-29] MEDS: metFORMIN 500 MG TABLET PO SCH ×2 (10:10→22:28)
[2018-03-29] MEDS: TORSEMIDE 20 MG TABLET PO SCH (10:11)
[2018-03-29] MEDS: INSULIN REGULAR 100 UNIT/ML SUBCUT SCH ×4 (10:11→22:25)
[2018-03-29] MEDS: PANTOPRAZOLE 40 MG TABLET PO SCH (18:22)
[2018-03-29] MEDS: ENOXAPARIN 30 MG/0.3 ML SYRINGE SUBCUT SCH ×2 (18:22→18:25)
[2018-03-29 18:29] LABS: Hematocrit 27.1 VOL% (42.0-52.0); Hemoglobin 8.2 GM/DL (14.0-18.0)
[2018-03-29] MEDS: LOSARTAN 25 MG TABLET PO SCH (22:28)
[2018-03-29] MEDS: CARVEDILOL 6.25 MG TABLET PO SCH (22:28)
[2018-03-29] MEDS: OMEGA 3 ACID ETHYL ESTERS 1 GM CAPSULE PO SCH (22:29)
[2018-03-29] MEDS: MAGNESIUM OXIDE 400 MG TABLET PO SCH (22:29)
[2018-03-30 06:26] LABS: Calcium 8.7 MG/DL (8.5-10.1); Osmolality,Calculated 279.5 MOS/KG (273-304); Potassium 3.6 MMOL/L (3.5-5.1)
[2018-03-30 06:41] LABS: Basophils # 0.1 10*3/uL (0.0-0.2); Basophils % 0.8 % (0.0-0.8); Eosinophils # 0.3 10*3/uL (0.0-0.87); Eosinophils % 4.1 % (0.00-10.9); Hematocrit 25.3 VOL% (42.0-52.0); Hemoglobin 7.4 GM/DL (14.0-18.0); Immature Granulocytes % 0.4 %; Immature Granulocytes Absolute 0.03 #; Lymphocytes # 1.2 10*3/uL (1.4-4.0); Lymphocytes % 16.3 % (21.2-54.2); Mean Corpuscular HGB Conc 29.2 GM/DL (32-36); Mean Corpuscular Hemoglobin 20 PG (27-34); Mean Corpuscular Volume 67.1 FL (87-102); Mean Platelet Volume 10.1 FL (9.6-12.0); Monocytes # 1.2 10*3/uL (0.11-0.8); Monocytes % 15.9 % (1.7-12.7); Neutrophils # 4.7 10*3/uL (1.4-7.4); Neutrophils % 62.5 % (38.7-73.9); Platelet Count 247 T/CUMM (130-400); Red Blood Count 3.77 MC/CUMM (3.8-5.5); Red Cell Distribution Width 21.5 % (9.3-17.3); White Blood Count 7.5 T/CUMM (4-12)
[2018-03-30 08:07] LABS: Band Neutrophils 2 % (0-10); Eosinophils 5 % (0-10); Lymphocytes 16 % (20-55); Segmented Neutrophils 64 % (50-85); Total Cells Counted 100
[2018-03-30 08:08] LABS: Acanthocytes 1+; Anisocytosis 2+; Hypochromasia 3+; Macrocytosis Slight; Microcytosis 2+; Ovalocytes 2+; Platelet Estimate Normal; Target Cells 2+
[2018-03-30] MEDS: INSULIN REGULAR 100 UNIT/ML SUBCUT SCH ×4 (08:51→22:14)
[2018-03-30] MEDS: CYANOCOBALAMIN 500 MCG TABLET PO SCH (10:29)
[2018-03-30] MEDS: MULTIVITAMIN (CENTRUM) TABLET PO SCH (10:32)
[2018-03-30] MEDS: TORSEMIDE 20 MG TABLET PO SCH (10:32)
[2018-03-30] MEDS: POTASSIUM CHLORIDE 10 MEQ TABLET PO SCH ×2 (10:33→21:00)
[2018-03-30] MEDS: ATORVASTATIN 40 MG TABLET PO SCH (10:33)
[2018-03-30] MEDS: metFORMIN 500 MG TABLET PO SCH ×2 (10:33→21:00)
[2018-03-30] MEDS: ASCORBIC ACID 500 MG TABLET PO SCH (10:33)
[2018-03-30] MEDS: GABAPENTIN 100 MG CAPSULE PO SCH ×2 (10:34→21:01)
[2018-03-30] MEDS: ASPIRIN EC 81 MG TABLET PO SCH (10:34)
[2018-03-30] MEDS: CARVEDILOL 6.25 MG TABLET PO SCH ×2 (10:34→21:00)
[2018-03-30] MEDS: LOSARTAN 25 MG TABLET PO SCH (10:35)
[2018-03-30] MEDS: THIAMINE 200 MG/2 ML VIAL IV SCH (10:36)
[2018-03-30] MEDS: ACETAMINOPHEN 500 MG TABLET PO SCH ×2 (11:02→22:14)
[2018-03-30] MEDS: ENOXAPARIN 30 MG/0.3 ML SYRINGE SUBCUT SCH (18:43)
[2018-03-30] MEDS: PANTOPRAZOLE 40 MG TABLET PO SCH (18:43)
[2018-03-30] MEDS: OMEGA 3 ACID ETHYL ESTERS 1 GM CAPSULE PO SCH (21:00)
[2018-03-30] MEDS: MAGNESIUM OXIDE 400 MG TABLET PO SCH (21:01)
[2018-03-31 05:10] LABS: Calcium 8.4 MG/DL (8.5-10.1); Osmolality,Calculated 279.5 MOS/KG (273-304); Potassium 3.4 MMOL/L (3.5-5.1)
[2018-03-31 05:11] LABS: Basophils # 0.1 10*3/uL (0.0-0.2); Basophils % 1.3 % (0.0-0.8); Eosinophils # 0.3 10*3/uL (0.0-0.87); Eosinophils % 4.5 % (0.00-10.9); Hematocrit 25.1 VOL% (42.0-52.0); Hemoglobin 7.5 GM/DL (14.0-18.0); Immature Granulocytes % 0.3 %; Immature Granulocytes Absolute 0.02 #; Lymphocytes # 1.1 10*3/uL (1.4-4.0); Mean Corpuscular HGB Conc 29.9 GM/DL (32-36); Mean Corpuscular Hemoglobin 20 PG (27-34); Mean Corpuscular Volume 66.8 FL (87-102); Mean Platelet Volume 9.8 FL (9.6-12.0); Monocytes # 1.1 10*3/uL (0.11-0.8); Monocytes % 15.2 % (1.7-12.7); Neutrophils # 4.8 10*3/uL (1.4-7.4); Neutrophils % 63.7 % (38.7-73.9); Platelet Count 234 T/CUMM (130-400); Red Blood Count 3.76 MC/CUMM (3.8-5.5); Red Cell Distribution Width 22.1 % (9.3-17.3); White Blood Count 7.5 T/CUMM (4-12)
[2018-03-31 05:36] LABS: Platelet Estimate Normal
[2018-03-31 05:37] LABS: Acanthocytes 2+; Anisocytosis 2+; Elliptocytes Few; Hypochromasia 3+; Macrocytosis 1+; Microcytosis 1+; Target Cells 2+
[2018-03-31] MEDS: INSULIN REGULAR 100 UNIT/ML SUBCUT SCH ×2 (08:03→11:56)
[2018-03-31] MEDS ORDERED: ENOXAPARIN 40 MG/0.4 ML SYRINGE SUBCUT SCH (09:00)
[2018-03-31] MEDS: TORSEMIDE 20 MG TABLET PO SCH (09:10)
[2018-03-31] MEDS: MULTIVITAMIN (CENTRUM) TABLET PO SCH (09:11)
[2018-03-31] MEDS: ATORVASTATIN 40 MG TABLET PO SCH (09:11)
[2018-03-31] MEDS: CYANOCOBALAMIN 500 MCG TABLET PO SCH (09:11)
[2018-03-31] MEDS: ACETAMINOPHEN 500 MG TABLET PO SCH (09:11)
[2018-03-31] MEDS: metFORMIN 500 MG TABLET PO SCH (09:11)
[2018-03-31] MEDS: ASCORBIC ACID 500 MG TABLET PO SCH (09:11)
[2018-03-31] MEDS: GABAPENTIN 100 MG CAPSULE PO SCH (09:11)
[2018-03-31] MEDS: CARVEDILOL 6.25 MG TABLET PO SCH (09:11)
[2018-03-31] MEDS: ASPIRIN EC 81 MG TABLET PO SCH (09:12)
[2018-03-31] MEDS: POTASSIUM CHLORIDE 10 MEQ TABLET PO SCH (09:12)
[2018-03-31 10:52] LABS: % Iron Saturation 4.1 % (18-50)
[2018-03-31 12:13] VITALS: BP 117/73
== END 2018-03-31 16:01 | disposition home or self-care (01) | DRG 291 ==
LOC: N.ED 02:53 → N.EDINP 08:18 → SUATTDRO 08:18 → N.2E 09:25
PROVIDERS: ADMIT Internal Medicine; ATTEND Hospitalist

== ENCOUNTER 2018-04-07 13:52 | Inpatient (IN) ==
[2018-04-07] MEDS ORDERED: ONDANSETRON 4 MG/2 ML VIAL IV STA (14:25)
[2018-04-07] MEDS ORDERED: SODIUM CHLORIDE 0.9% 500 ML IV STA (14:25)
[2018-04-07] MEDS ORDERED: PANTOPRAZOLE 40 MG VIAL IV STA (14:25)
[2018-04-07 14:42] LABS: Basophils # 0.1 10*3/uL (0.0-0.2); Eosinophils # 0.4 10*3/uL (0.0-0.87); Eosinophils % 6.4 % (0.00-10.9); Hematocrit 27.5 VOL% (42.0-52.0); Immature Granulocytes % 0.3 %; Immature Granulocytes Absolute 0.02 #; Lymphocytes # 1.1 10*3/uL (1.4-4.0); Lymphocytes % 17.3 % (21.2-54.2); Mean Corpuscular HGB Conc 29.1 GM/DL (32-36); Mean Corpuscular Hemoglobin 20 PG (27-34); Mean Corpuscular Volume 67.7 FL (87-102); Monocytes # 0.8 10*3/uL (0.11-0.8); Monocytes % 13.1 % (1.7-12.7); Neutrophils # 3.7 10*3/uL (1.4-7.4); Neutrophils % 60.9 % (38.7-73.9); Platelet Count 187 T/CUMM (130-400); Red Blood Count 4.06 MC/CUMM (3.8-5.5); Red Cell Distribution Width 23.9 % (9.3-17.3); White Blood Count 6.1 T/CUMM (4-12)
[2018-04-07 15:07] LABS: Albumin 2.9 G/DL (3.4-5.0); Bilirubin,Total 0.7 MG/DL (0.2-1.0); Calcium 8.5 MG/DL (8.5-10.1); Osmolality,Calculated 280.8 MOS/KG (273-304); Potassium 4.4 MMOL/L (3.5-5.1); Total Protein 7.4 G/DL (6.4-8.3)
[2018-04-07 15:08] LABS: Platelet Estimate Adequate
[2018-04-07 15:09] LABS: Anisocytosis 2+; Hypochromasia 3+
[2018-04-07 15:10] LABS: Ovalocytes Few; Target Cells Few
[2018-04-07 15:11] LABS: Acanthocytes 1+
[2018-04-07 15:12] LABS: Macrocytosis 1+
[2018-04-07] MEDS ORDERED: MAGNESIUM SULF RIDER 2 GM in PREMIX 1 EACH IV STA (15:28)
[2018-04-07 15:58] LABS: INR 1.1
[2018-04-07] MEDS ORDERED: ONDANSETRON 4 MG/2 ML VIAL IV PRN (16:33)
[2018-04-07] MEDS ORDERED: SODIUM CHLORIDE 0.9% 1,000 ML IV PRN (16:33)
[2018-04-07] MEDS ORDERED: GLUCAGON 1 MG VIAL IM PRN (16:53)
[2018-04-07] MEDS ORDERED: DEXTROSE 50% 25 GM/50 ML VIAL IV PRN (16:53)
[2018-04-07 18:52] LABS: Hemoglobin 7.9 GM/DL (14.0-18.0)
[2018-04-07] MEDS: SODIUM CHLORIDE 0.9% 1,000 ML IV SCH (18:53)
[2018-04-07] MEDS: OMEGA 3 ACID ETHYL ESTERS 1 GM CAPSULE PO SCH (22:17)
[2018-04-07] MEDS: MAGNESIUM OXIDE 400 MG TABLET PO SCH (22:17)
[2018-04-07] MEDS: GABAPENTIN 100 MG CAPSULE PO SCH (22:17)
[2018-04-07] MEDS: LOSARTAN 25 MG TABLET PO SCH (22:17)
[2018-04-07] MEDS: POTASSIUM CHLORIDE 10 MEQ TABLET PO SCH (22:17)
[2018-04-07] MEDS: INSULIN REGULAR 100 UNIT/ML SUBCUT SCH (22:18)
[2018-04-07 23:34] LABS: Hematocrit 24.7 VOL% (42.0-52.0); Hemoglobin 7.3 GM/DL (14.0-18.0)
[2018-04-08 05:10] LABS: Hematocrit 23.1 VOL% (42.0-52.0); Hemoglobin 6.8 GM/DL (14.0-18.0)
[2018-04-08 05:12] LABS: Basophils # 0.1 10*3/uL (0.0-0.2); Basophils % 0.9 % (0.0-0.8); Eosinophils # 0.6 10*3/uL (0.0-0.87); Eosinophils % 9.8 % (0.00-10.9); Hematocrit 23.5 VOL% (42.0-52.0); Hemoglobin 6.9 GM/DL (14.0-18.0); Immature Granulocytes % 0.2 %; Immature Granulocytes Absolute 0.01 #; Mean Corpuscular HGB Conc 29.4 GM/DL (32-36); Mean Corpuscular Hemoglobin 20 PG (27-34); Mean Corpuscular Volume 67.9 FL (87-102); Mean Platelet Volume 10.5 FL (9.6-12.0); Monocytes # 0.7 10*3/uL (0.11-0.8); Monocytes % 11.9 % (1.7-12.7); Neutrophils # 3.5 10*3/uL (1.4-7.4); Neutrophils % 60.2 % (38.7-73.9); Platelet Count 160 T/CUMM (130-400); Red Blood Count 3.46 MC/CUMM (3.8-5.5); Red Cell Distribution Width 23.9 % (9.3-17.3); White Blood Count 5.8 T/CUMM (4-12)
[2018-04-08 05:29] LABS: Albumin 2.5 G/DL (3.4-5.0); Bilirubin,Total 0.8 MG/DL (0.2-1.0); Calcium 8.2 MG/DL (8.5-10.1); Osmolality,Calculated 281.5 MOS/KG (273-304); Potassium 4.1 MMOL/L (3.5-5.1); Total Protein 6.5 G/DL (6.4-8.3)
[2018-04-08 05:52] LABS: Acanthocytes Few; Hypochromasia 2+; Microcytosis 1+; Target Cells Few
[2018-04-08 05:53] LABS: Ovalocytes Few; Platelet Estimate Adequate
[2018-04-08] MEDS ORDERED: SODIUM CHLORIDE 0.9% 1,000 ML IV PRN (06:31)
[2018-04-08] MEDS: INSULIN REGULAR 100 UNIT/ML SUBCUT SCH ×4 (08:17→21:55)
[2018-04-08] MEDS: TORSEMIDE 20 MG TABLET PO SCH (08:48)
[2018-04-08] MEDS: MULTIVITAMIN (CENTRUM) TABLET PO SCH (08:48)
[2018-04-08] MEDS: GLIMEPIRIDE 2 MG TABLET PO SCH (08:49)
[2018-04-08] MEDS: BISACODYL 5 MG TABLET PO SCH ×2 (08:50→17:07)
[2018-04-08] MEDS: OMEGA 3 ACID ETHYL ESTERS 1 GM CAPSULE PO SCH ×2 (08:50→21:54)
[2018-04-08] MEDS: GABAPENTIN 100 MG CAPSULE PO SCH ×2 (08:50→21:54)
[2018-04-08] MEDS: sitaGLIPtin 100 MG TABLET PO SCH (08:50)
[2018-04-08] MEDS: ASCORBIC ACID 500 MG TABLET PO SCH (08:51)
[2018-04-08] MEDS: ATORVASTATIN 40 MG TABLET PO SCH (08:51)
[2018-04-08] MEDS: POTASSIUM CHLORIDE 10 MEQ TABLET PO SCH ×2 (08:51→21:54)
[2018-04-08] MEDS: CYANOCOBALAMIN 500 MCG TABLET PO SCH (08:51)
[2018-04-08] MEDS: LOSARTAN 25 MG TABLET PO SCH ×3 (08:52→22:01)
[2018-04-08] MEDS: ATENOLOL 25 MG TABLET PO SCH (08:52)
[2018-04-08] MEDS ORDERED: PANTOPRAZOLE 40 MG VIAL IV SCH (09:00)
[2018-04-08] MEDS ORDERED: IRON DEXTRAN 25 MG in SYRINGE 1 EACH IV ONE (09:00)
[2018-04-08] MEDS: HYDROCORTISONE 100 MG VIAL IV SCH ×2 (14:21→21:51)
[2018-04-08 14:59] LABS: Hematocrit 30.3 VOL% (42.0-52.0); Hemoglobin 9.1 GM/DL (14.0-18.0)
[2018-04-08] MEDS ORDERED: IRON DEXTRAN IV ONE (16:00)
[2018-04-08] MEDS ORDERED: SODIUM CHLORIDE 0.9% IV ONE (16:00)
[2018-04-08] MEDS ORDERED: NON-FORMULARY MEDICATION (Esomeprazole Magnesium [Nexium] 40 MG) PO SCH (16:30)
[2018-04-08] MEDS: SODIUM CHLORIDE 0.9% 1,000 ML IV SCH (17:07)
[2018-04-08] MEDS ORDERED: POLYETHYLENE GLYCOL POWDER 255 GM BOTTLE PO ONE (18:00)
[2018-04-08] MEDS: MAGNESIUM OXIDE 400 MG TABLET PO SCH (21:54)
[2018-04-09] MEDS: BISACODYL 5 MG TABLET PO SCH (01:57)
[2018-04-09] MEDS: HYDROCORTISONE 100 MG VIAL IV SCH ×3 (04:40→21:33)
[2018-04-09 05:37] LABS: Basophils % 0.2 % (0.0-0.8); Hematocrit 29.2 VOL% (42.0-52.0); Hemoglobin 8.7 GM/DL (14.0-18.0); Immature Granulocytes % 0.4 %; Immature Granulocytes Absolute 0.02 #; Lymphocytes # 0.7 10*3/uL (1.4-4.0); Lymphocytes % 12.9 % (21.2-54.2); Mean Corpuscular HGB Conc 29.8 GM/DL (32-36); Mean Corpuscular Hemoglobin 21 PG (27-34); Mean Corpuscular Volume 70.5 FL (87-102); Mean Platelet Volume 10.5 FL (9.6-12.0); Monocytes # 0.3 10*3/uL (0.11-0.8); Monocytes % 5.5 % (1.7-12.7); Neutrophils # 4.5 10*3/uL (1.4-7.4); Platelet Count 167 T/CUMM (130-400); Red Blood Count 4.14 MC/CUMM (3.8-5.5); White Blood Count 5.5 T/CUMM (4-12)
[2018-04-09 06:10] LABS: Platelet Estimate Normal
[2018-04-09 06:23] LABS: Albumin 2.9 G/DL (3.4-5.0); Calcium 8.8 MG/DL (8.5-10.1); Potassium 3.9 MMOL/L (3.5-5.1); Total Protein 7.9 G/DL (6.4-8.3)
[2018-04-09] MEDS: INSULIN REGULAR 100 UNIT/ML SUBCUT SCH ×4 (07:56→21:35)
[2018-04-09] MEDS ORDERED: LIDOCAINE 100 MG/5 ML SYRINGE ONE (09:00)
[2018-04-09] MEDS ORDERED: PHENYLEPHRINE 1 MG/10 ML SYRINGE IV ONE (09:00)
[2018-04-09] MEDS ORDERED: PROPOFOL 200 MG/20 ML VIAL IV ONE (09:00)
[2018-04-09] MEDS: GABAPENTIN 100 MG CAPSULE PO SCH ×2 (10:49→21:30)
[2018-04-09] MEDS: GLIMEPIRIDE 2 MG TABLET PO SCH (10:49)
[2018-04-09] MEDS: POTASSIUM CHLORIDE 10 MEQ TABLET PO SCH ×2 (10:50→21:30)
[2018-04-09] MEDS: MULTIVITAMIN (CENTRUM) TABLET PO SCH (10:50)
[2018-04-09] MEDS: OMEGA 3 ACID ETHYL ESTERS 1 GM CAPSULE PO SCH ×2 (10:50→21:31)
[2018-04-09] MEDS: ASCORBIC ACID 500 MG TABLET PO SCH (10:50)
[2018-04-09] MEDS: TORSEMIDE 20 MG TABLET PO SCH (10:50)
[2018-04-09] MEDS: PANTOPRAZOLE 40 MG TABLET PO SCH (10:51)
[2018-04-09] MEDS: LOSARTAN 25 MG TABLET PO SCH ×2 (10:51→21:30)
[2018-04-09] MEDS: ATENOLOL 25 MG TABLET PO SCH (10:51)
[2018-04-09] MEDS: sitaGLIPtin 100 MG TABLET PO SCH (10:51)
[2018-04-09] MEDS: ATORVASTATIN 40 MG TABLET PO SCH (10:51)
[2018-04-09] MEDS: CYANOCOBALAMIN 500 MCG TABLET PO SCH (10:51)
[2018-04-09] MEDS: SODIUM CHLORIDE 0.9% 1,000 ML IV SCH (11:00)
[2018-04-09] MEDS: MAGNESIUM OXIDE 400 MG TABLET PO SCH (21:31)
[2018-04-10] MEDS: HYDROCORTISONE 100 MG VIAL IV SCH (05:26)
[2018-04-10] MEDS: INSULIN REGULAR 100 UNIT/ML SUBCUT SCH ×2 (07:13→11:47)
[2018-04-10 07:14] LABS: Hematocrit 28.2 VOL% (42.0-52.0); Hemoglobin 8.5 GM/DL (14.0-18.0)
[2018-04-10] MEDS: MULTIVITAMIN (CENTRUM) TABLET PO SCH ×2 (07:52→08:05)
[2018-04-10] MEDS: CYANOCOBALAMIN 500 MCG TABLET PO SCH ×2 (07:52→08:07)
[2018-04-10] MEDS: GLIMEPIRIDE 2 MG TABLET PO SCH ×2 (07:52→08:05)
[2018-04-10] MEDS: TORSEMIDE 20 MG TABLET PO SCH ×2 (07:52→08:05)
[2018-04-10] MEDS: GABAPENTIN 100 MG CAPSULE PO SCH ×2 (07:53→08:06)
[2018-04-10] MEDS: POTASSIUM CHLORIDE 10 MEQ TABLET PO SCH ×2 (07:53→08:06)
[2018-04-10] MEDS: OMEGA 3 ACID ETHYL ESTERS 1 GM CAPSULE PO SCH ×2 (07:53→08:06)
[2018-04-10] MEDS: ASCORBIC ACID 500 MG TABLET PO SCH ×2 (07:54→08:07)
[2018-04-10] MEDS: sitaGLIPtin 100 MG TABLET PO SCH ×2 (07:54→08:06)
[2018-04-10] MEDS: PANTOPRAZOLE 40 MG TABLET PO SCH ×2 (07:54→08:06)
[2018-04-10] MEDS: ATORVASTATIN 40 MG TABLET PO SCH ×2 (07:54→08:06)
[2018-04-10] MEDS: LOSARTAN 25 MG TABLET PO SCH (08:05)
[2018-04-10] MEDS: ATENOLOL 25 MG TABLET PO SCH (08:06)
[2018-04-10] MEDS ORDERED: IRON SUCROSE 300 MG in SODIUM CHLORIDE 0.9% 100 ML IV ONE (10:00)
[2018-04-10 12:14] VITALS: BP 128/60
== END 2018-04-10 13:02 | disposition home or self-care (01) | DRG 378 ==
LOC: N.2E 13:52 → N.ED 13:52 → SUATTDRO 16:49 → N.2E 18:01
PROVIDERS: ADMIT Hospitalist; ATTEND Internal Medicine

== ENCOUNTER 2019-07-26 14:01 | Inpatient (IN) ==
[2019-07-26] MEDS ORDERED: DEXTROSE 50% 25 GM/50 ML VIAL IV PRN ×2 (16:36→16:41)
[2019-07-26] MEDS ORDERED: SIMETHICONE CHEW 125 MG TABLET PO PRN (16:36)
[2019-07-26] MEDS ORDERED: ONDANSETRON 4 MG/2 ML VIAL IV PRN (16:36)
[2019-07-26] MEDS ORDERED: ACETAMINOPHEN 325 MG TABLET PO PRN (16:36)
[2019-07-26] MEDS ORDERED: ALUMINUM/MAGNES/SIMETH MAX STR 30 ML UDCUP PO PRN (16:36)
[2019-07-26] MEDS ORDERED: LACTULOSE 20 GM/30 ML UDCUP PO PRN (16:36)
[2019-07-26] MEDS ORDERED: guaiFENesin/DM ER 600-30 MG TABLET PO PRN (16:36)
[2019-07-26] MEDS ORDERED: ZALEPLON 5 MG CAPSULE PO PRN (16:36)
[2019-07-26] MEDS ORDERED: hydrALAZINE 20 MG/1 ML VIAL IV PRN (16:36)
[2019-07-26] MEDS ORDERED: POTASSIUM CHLORIDE RIDER 10 MEQ in PREMIX 1 EACH IV PRN (16:36)
[2019-07-26] MEDS ORDERED: DOCUSATE SODIUM 100 MG CAPSULE PO PRN (16:36)
[2019-07-26] MEDS ORDERED: MORPHINE 4 MG/1 ML VIAL IV PRN (16:36)
[2019-07-26] MEDS ORDERED: GLUCAGON 1 MG VIAL IM PRN (16:36)
[2019-07-26] MEDS ORDERED: MAGNESIUM SULF RIDER 2 GM in PREMIX 1 EACH IV PRN (16:36)
[2019-07-26] MEDS ORDERED: traZODone 50 MG TABLET PO PRN (16:36)
[2019-07-26] MEDS ORDERED: MAGNESIUM SULF RIDER 4 GM in PREMIX 1 EACH IV PRN (16:36)
[2019-07-26] MEDS ORDERED: SODIUM CHLORIDE 0.9% 1,000 ML IV PRN (17:01)
[2019-07-26 17:02] LABS: Hematocrit 20.6 VOL% (42.0-52.0)
[2019-07-26] MEDS ORDERED: PANTOPRAZOLE IV ONE (17:11)
[2019-07-26 17:13] LABS: Hemoglobin 6.3 GM/DL (14.0-18.0)
[2019-07-26] MEDS ORDERED: FUROSEMIDE 40 MG/4 ML VIAL IV SCH (17:30)
[2019-07-26] MEDS ORDERED: PANTOPRAZOLE INJ 80 MG in SODIUM CHLORIDE 0.9% 100 ML IV ONE (18:30)
[2019-07-26] MEDS: ALBUTEROL/IPRATROPIUM 3 ML NEB RESP TX SCH (19:24)
[2019-07-26] MEDS ORDERED: LOSARTAN 25 MG TABLET PO SCH (21:00)
[2019-07-26] MEDS: GABAPENTIN 100 MG CAPSULE PO SCH (21:17)
[2019-07-26] MEDS: OMEGA 3 ACID ETHYL ESTERS 1 GM CAPSULE PO SCH (21:17)
[2019-07-26] MEDS: MAGNESIUM OXIDE 400 MG TABLET PO SCH (21:17)
[2019-07-26] MEDS: ATORVASTATIN 40 MG TABLET PO SCH (21:17)
[2019-07-26] MEDS: INSULIN REGULAR 100 UNIT/ML SUBCUT SCH (21:18)
[2019-07-26] MEDS: SOTALOL 80 MG TABLET PO SCH (21:18)
[2019-07-27] MEDS: ALBUTEROL/IPRATROPIUM 3 ML NEB RESP TX SCH ×4 (00:20→19:29)
[2019-07-27 06:08] LABS: Basophils # 0.1 10*3/uL (0.0-0.2); Eosinophils # 0.5 10*3/uL (0.0-0.87); Eosinophils % 8.5 % (0.00-10.9); Hematocrit 23.1 VOL% (42.0-52.0); Hemoglobin 7.5 GM/DL (14.0-18.0); Immature Granulocytes % 0.2 %; Immature Granulocytes Absolute 0.01 #; Lymphocytes # 1.8 10*3/uL (1.4-4.0); Lymphocytes % 30.7 % (21.2-54.2); Mean Corpuscular HGB Conc 32.5 GM/DL (32-36); Mean Corpuscular Volume 88.8 FL (87-102); Mean Platelet Volume 10.5 FL (9.6-12.0); Monocytes % 13.9 % (1.7-12.7); Neutrophils % 45.7 % (38.7-73.9); Platelet Count 143 T/CUMM (130-400); Red Cell Distribution Width 14.2 % (9.3-17.3); White Blood Count 5.9 T/CUMM (4-12)
[2019-07-27 06:46] LABS: Albumin 2.7 G/DL (3.4-5.0); Bilirubin,Total 0.8 MG/DL (0.2-1.0); Calcium 8.7 MG/DL (8.5-10.1); Osmolality,Calculated 274.8 MOS/KG (273-304); Risk Ratio 3.29; Thyroid Stimulating Hormone 3.16 uIU/ml (0.358-3.74); Total Protein 6.3 G/DL (6.4-8.3); VLDL CHOLESTEROL 28.8 MG/DL
[2019-07-27 07:07] LABS: Hemoglobin 8.3 GM/DL (14.0-18.0)
[2019-07-27] MEDS: INSULIN REGULAR 100 UNIT/ML SUBCUT SCH ×6 (07:44→23:55)
[2019-07-27] MEDS: ASCORBIC ACID 500 MG TABLET PO SCH (08:44)
[2019-07-27] MEDS: GABAPENTIN 100 MG CAPSULE PO SCH ×2 (08:45→21:02)
[2019-07-27] MEDS: SOTALOL 80 MG TABLET PO SCH ×2 (08:45→21:03)
[2019-07-27] MEDS: CYANOCOBALAMIN 500 MCG TABLET PO SCH (08:45)
[2019-07-27] MEDS: FERROUS SULFATE 325 MG TABLET PO SCH (08:46)
[2019-07-27] MEDS: TORSEMIDE 20 MG TABLET PO SCH (08:46)
[2019-07-27] MEDS: VITAMIN E 1000 UNIT CAPSULE PO SCH (08:47)
[2019-07-27] MEDS: OMEGA 3 ACID ETHYL ESTERS 1 GM CAPSULE PO SCH ×2 (08:47→21:02)
[2019-07-27] MEDS ORDERED: GLIMEPIRIDE 2 MG TABLET PO SCH (09:00)
[2019-07-27] MEDS ORDERED: sitaGLIPtin 100 MG TABLET PO SCH (09:00)
[2019-07-27] MEDS ORDERED: SITAGLIPTIN 100 MG PO SCH (09:00)
[2019-07-27 09:42] LABS: Hematocrit 26.9 VOL% (42.0-52.0); Hemoglobin 8.5 GM/DL (14.0-18.0)
[2019-07-27] MEDS: PANTOPRAZOLE 40 MG VIAL IV SCH ×2 (10:34→21:03)
[2019-07-27] MEDS: MULTIVITAMIN (CENTRUM) TABLET PO SCH (10:34)
[2019-07-27] MEDS ORDERED: POTASSIUM CHLORIDE 20 MEQ TABLET PO ONE (15:13)
[2019-07-27] MEDS: MAGNESIUM OXIDE 400 MG TABLET PO SCH (21:02)
[2019-07-27] MEDS: ATORVASTATIN 40 MG TABLET PO SCH (21:03)
[2019-07-28] MEDS: ALBUTEROL/IPRATROPIUM 3 ML NEB RESP TX SCH ×4 (01:34→19:19)
[2019-07-28 05:09] LABS: Basophils # 0.1 10*3/uL (0.0-0.2); Basophils % 1.3 % (0.0-0.8); Eosinophils # 0.6 10*3/uL (0.0-0.87); Eosinophils % 9.4 % (0.00-10.9); Hematocrit 25.8 VOL% (42.0-52.0); Hemoglobin 8.4 GM/DL (14.0-18.0); Immature Granulocytes % 0.3 %; Immature Granulocytes Absolute 0.02 #; Lymphocytes % 29.9 % (21.2-54.2); Mean Corpuscular HGB Conc 32.6 GM/DL (32-36); Mean Corpuscular Volume 88.4 FL (87-102); Mean Platelet Volume 10.6 FL (9.6-12.0); Neutrophils % 45.1 % (38.7-73.9); Platelet Count 165 T/CUMM (130-400); Red Blood Count 2.92 MC/CUMM (3.8-5.5); Red Cell Distribution Width 14.2 % (9.3-17.3); White Blood Count 6.8 T/CUMM (4-12)
[2019-07-28 05:22] LABS: INR 1.1; PT Patient Result 11.6 SECS (9.8-11.9)
[2019-07-28 05:50] LABS: Albumin 2.8 G/DL (3.4-5.0); Bilirubin,Total 0.8 MG/DL (0.2-1.0); Calcium 8.4 MG/DL (8.5-10.1); Total Protein 6.6 G/DL (6.4-8.3)
[2019-07-28] MEDS: LACTATED RINGERS 1,000 ML IV SCH (07:15)
[2019-07-28] MEDS: INSULIN REGULAR 100 UNIT/ML SUBCUT SCH ×4 (08:40→22:30)
[2019-07-28] MEDS: POTASSIUM CHLORIDE RIDER 10 MEQ in PREMIX 1 EACH IV SCH ×4 (09:09→16:37)
[2019-07-28] MEDS ORDERED: propofoL 200 MG/20 ML VIAL IV ONE (10:00)
[2019-07-28] MEDS ORDERED: ETOMIDATE 20 MG/10 ML VIAL IV ONE (10:00)
[2019-07-28] MEDS ORDERED: PHENYLEPHRINE 1 MG/10 ML SYRINGE IV ONE (10:00)
[2019-07-28] MEDS ORDERED: LIDOCAINE 2% 5 ML VIAL ONE (10:00)
[2019-07-28] MEDS: SOTALOL 80 MG TABLET PO SCH ×2 (10:58→22:27)
[2019-07-28] MEDS: TORSEMIDE 20 MG TABLET PO SCH (10:58)
[2019-07-28] MEDS: OMEGA 3 ACID ETHYL ESTERS 1 GM CAPSULE PO SCH ×2 (11:14→22:42)
[2019-07-28] MEDS: ASCORBIC ACID 500 MG TABLET PO SCH (11:14)
[2019-07-28] MEDS: FERROUS SULFATE 325 MG TABLET PO SCH (11:14)
[2019-07-28] MEDS: MULTIVITAMIN (CENTRUM) TABLET PO SCH (11:14)
[2019-07-28] MEDS: GABAPENTIN 100 MG CAPSULE PO SCH ×2 (11:14→22:26)
[2019-07-28] MEDS: ASPIRIN EC 81 MG TABLET PO SCH (11:14)
[2019-07-28] MEDS: CYANOCOBALAMIN 500 MCG TABLET PO SCH (11:14)
[2019-07-28] MEDS: VITAMIN E 1000 UNIT CAPSULE PO SCH (11:15)
[2019-07-28] MEDS: PANTOPRAZOLE 40 MG VIAL IV SCH ×2 (11:54→22:28)
[2019-07-28] MEDS: MAGNESIUM OXIDE 400 MG TABLET PO SCH (22:27)
[2019-07-28] MEDS: ATORVASTATIN 40 MG TABLET PO SCH (22:27)
[2019-07-29] MEDS: ALBUTEROL/IPRATROPIUM 3 ML NEB RESP TX SCH ×2 (01:20→07:30)
[2019-07-29 07:16] LABS: Basophils # 0.1 10*3/uL (0.0-0.2); Basophils % 1.2 % (0.0-0.8); Eosinophils # 0.8 10*3/uL (0.0-0.87); Eosinophils % 11.7 % (0.00-10.9); Hematocrit 24.9 VOL% (42.0-52.0); Hemoglobin 7.8 GM/DL (14.0-18.0); Immature Granulocytes % 0.2 %; Immature Granulocytes Absolute 0.01 #; Lymphocytes # 1.9 10*3/uL (1.4-4.0); Lymphocytes % 29.9 % (21.2-54.2); Mean Corpuscular HGB Conc 31.3 GM/DL (32-36); Mean Corpuscular Volume 90.5 FL (87-102); Mean Platelet Volume 10.4 FL (9.6-12.0); Monocytes % 13.2 % (1.7-12.7); Neutrophils % 43.8 % (38.7-73.9); Platelet Count 162 T/CUMM (130-400); Red Blood Count 2.75 MC/CUMM (3.8-5.5); Red Cell Distribution Width 14.5 % (9.3-17.3); White Blood Count 6.4 T/CUMM (4-12)
[2019-07-29 07:41] LABS: Eosinophils 13 % (0-10); Hypochromasia 1+; Lymphocytes 31 % (20-55); Segmented Neutrophils 45 % (50-85); Total Cells Counted 100
[2019-07-29 07:42] LABS: Atypical Lymphocytes Few; Microcytosis 1+; Polychromasia Slight
[2019-07-29 07:43] LABS: Platelet Estimate Adequate
[2019-07-29] MEDS: LACTATED RINGERS 1,000 ML IV SCH (07:51)
[2019-07-29 07:52] LABS: Albumin 2.8 G/DL (3.4-5.0); Bilirubin,Total 1.6 MG/DL (0.2-1.0); Calcium 8.6 MG/DL (8.5-10.1); Total Protein 6.3 G/DL (6.4-8.3)
[2019-07-29] MEDS: INSULIN REGULAR 100 UNIT/ML SUBCUT SCH ×2 (07:54→12:01)
[2019-07-29] MEDS: CYANOCOBALAMIN 500 MCG TABLET PO SCH (08:18)
[2019-07-29] MEDS: PANTOPRAZOLE 40 MG VIAL IV SCH (08:18)
[2019-07-29] MEDS: OMEGA 3 ACID ETHYL ESTERS 1 GM CAPSULE PO SCH (08:21)
[2019-07-29] MEDS: MULTIVITAMIN (CENTRUM) TABLET PO SCH (08:21)
[2019-07-29] MEDS: TORSEMIDE 20 MG TABLET PO SCH (08:21)
[2019-07-29] MEDS: ASPIRIN EC 81 MG TABLET PO SCH (08:22)
[2019-07-29] MEDS: FERROUS SULFATE 325 MG TABLET PO SCH (08:22)
[2019-07-29] MEDS: VITAMIN E 1000 UNIT CAPSULE PO SCH (08:22)
[2019-07-29] MEDS: ASCORBIC ACID 500 MG TABLET PO SCH (08:23)
[2019-07-29] MEDS: SOTALOL 80 MG TABLET PO SCH (08:23)
[2019-07-29] MEDS: GABAPENTIN 100 MG CAPSULE PO SCH (08:23)
[2019-07-29 12:52] VITALS: BP 127/95
== END 2019-07-29 14:34 | disposition home or self-care (01) | DRG 813 ==
LOC: N.3E 15:26
PROVIDERS: ADMIT Internal Medicine; ATTEND Family Medicine

== ENCOUNTER 2020-08-05 15:03 | Inpatient (IN) ==
[2020-08-05] MEDS ORDERED: PANTOPRAZOLE 40 MG VIAL IV STA (16:20)
[2020-08-05 16:31] LABS: Basophils # 0.1 10*3/uL (0.0-0.2); Basophils % 0.7 % (0.0-0.8); Eosinophils # 0.2 10*3/uL (0.0-0.87); Eosinophils % 2.1 % (0.00-10.9); Immature Granulocytes % 0.3 %; Immature Granulocytes Absolute 0.02 #; Lymphocytes % 14.6 % (21.2-54.2); Mean Corpuscular HGB Conc 30.4 GM/DL (32-36); Mean Corpuscular Volume 90.2 FL (87-102); Mean Platelet Volume 10.5 FL (9.6-12.0); NRBC # 0.03 10*3/uL; Neutrophils % 68.3 % (38.7-73.9); Platelet Count 246 T/CUMM (130-400); Red Blood Count 2.55 MC/CUMM (3.8-5.5); Red Cell Distribution Width 14.6 % (9.3-17.3)
[2020-08-05 16:44] LABS: INR 1.2; PT Patient Result 13.6 SECS (10.5-12.0)
[2020-08-05 16:46] LABS: Albumin 2.9 G/DL (3.4-5.0); Bilirubin,Total 0.5 MG/DL (0.2-1.0); Calcium 8.4 MG/DL (8.5-10.1); Osmolality,Calculated 293.4 MOS/KG (273-304); Potassium 3.7 MMOL/L (3.5-5.1); Total Protein 6.9 G/DL (6.4-8.2)
[2020-08-05] MEDS ORDERED: ONDANSETRON 4 MG/2 ML VIAL IV PRN (17:05)
[2020-08-05] MEDS ORDERED: hydrALAZINE 20 MG/1 ML VIAL IV PRN (17:05)
[2020-08-05] MEDS ORDERED: DEXTROSE 50% 25 GM/50 ML VIAL IV PRN (17:05)
[2020-08-05] MEDS ORDERED: NICOTINE 21 MG/24 HR PATCH TRANSDERM PRN (17:05)
[2020-08-05] MEDS ORDERED: GLUCAGON 1 MG VIAL IM PRN (17:05)
[2020-08-05] MEDS ORDERED: SODIUM CHLORIDE 0.9% 1,000 ML IV PRN (17:08)
[2020-08-05 17:11] LABS: Eosinophils 6 % (0-10); Lymphocytes 11 % (20-55); Platelet Estimate Adequate; Segmented Neutrophils 70 % (50-85); Total Cells Counted 100
[2020-08-05 17:12] LABS: Anisocytosis Slight; Hypochromasia Slight; Polychromasia Few
[2020-08-05] MEDS ORDERED: ALBUTEROL 2.5 MG/3 ML NEB RESP TX PRN (20:33)
[2020-08-05] MEDS: PREGABALIN 50 MG CAPSULE PO SCH (22:15)
[2020-08-05] MEDS: SOTALOL 80 MG TABLET PO SCH (22:15)
[2020-08-05] MEDS: ATORVASTATIN 40 MG TABLET PO SCH (22:15)
[2020-08-05] MEDS: MAGNESIUM CHLORIDE 64 MG TABLET PO SCH (22:15)
[2020-08-05] MEDS: INSULIN LISPRO 100 UNIT/ML SUBCUT SCH (22:26)
[2020-08-05] MEDS: CARBIDOPA/LEVODOPA 25-100 MG TABLET PO SCH (23:22)
[2020-08-05] MEDS: SODIUM CHLORIDE 0.9% 1,000 ML IV SCH (23:43)
[2020-08-05 23:51] LABS: Hematocrit 28.7 VOL% (42.0-52.0)
[2020-08-06 05:46] LABS: Basophils # 0.1 10*3/uL (0.0-0.2); Basophils % 0.8 % (0.0-0.8); Eosinophils # 0.3 10*3/uL (0.0-0.87); Eosinophils % 2.9 % (0.00-10.9); Hematocrit 26.7 VOL% (42.0-52.0); Hemoglobin 8.4 GM/DL (14.0-18.0); Immature Granulocytes % 0.6 %; Immature Granulocytes Absolute 0.05 #; Lymphocytes # 1.3 10*3/uL (1.4-4.0); Mean Corpuscular HGB Conc 31.5 GM/DL (32-36); Mean Corpuscular Volume 88.7 FL (87-102); Mean Platelet Volume 10.6 FL (9.6-12.0); Monocytes % 17.8 % (1.7-12.7); NRBC # 0.05 10*3/uL; Neutrophils % 62.9 % (38.7-73.9); Platelet Count 225 T/CUMM (130-400); Red Blood Count 3.01 MC/CUMM (3.8-5.5); Red Cell Distribution Width 14.9 % (9.3-17.3); White Blood Count 8.5 T/CUMM (4-12)
[2020-08-06 05:49] LABS: Calcium 8.2 MG/DL (8.5-10.1); Osmolality,Calculated 286.5 MOS/KG (273-304); Potassium 3.9 MMOL/L (3.5-5.1)
[2020-08-06 06:04] LABS: Eosinophils 2 % (0-10); Lymphocytes 11 % (20-55); Nucleated Red Blood Cells 1 (0-5); Segmented Neutrophils 72 % (50-85); Total Cells Counted 100
[2020-08-06 06:05] LABS: Hypochromasia 1+; Microcytosis 1+; Ovalocytes Slight; Polychromasia Slight
[2020-08-06 06:06] LABS: Platelet Estimate Normal
[2020-08-06] MEDS: SODIUM CHLORIDE 0.9% 1,000 ML IV SCH ×3 (06:39→21:00)
[2020-08-06] MEDS: MULTIVITAMIN (CENTRUM) TABLET PO SCH (10:14)
[2020-08-06] MEDS: MAGNESIUM CHLORIDE 64 MG TABLET PO SCH ×2 (10:15→21:07)
[2020-08-06] MEDS: SOTALOL 80 MG TABLET PO SCH ×2 (10:15→21:07)
[2020-08-06] MEDS: PREGABALIN 50 MG CAPSULE PO SCH ×2 (10:16→21:07)
[2020-08-06] MEDS: ASCORBIC ACID 500 MG TABLET PO SCH (10:16)
[2020-08-06] MEDS: PANTOPRAZOLE 40 MG VIAL IV SCH ×2 (10:25→21:08)
[2020-08-06] MEDS: CARBIDOPA/LEVODOPA 25-100 MG TABLET PO SCH ×4 (10:25→21:08)
[2020-08-06] MEDS: INSULIN LISPRO 100 UNIT/ML SUBCUT SCH ×4 (10:28→21:55)
[2020-08-06] MEDS: ATORVASTATIN 40 MG TABLET PO SCH (21:08)
[2020-08-07 05:24] LABS: Basophils # 0.1 10*3/uL (0.0-0.2); Basophils % 0.9 % (0.0-0.8); Eosinophils # 0.2 10*3/uL (0.0-0.87); Eosinophils % 2.8 % (0.00-10.9); Hematocrit 25.2 VOL% (42.0-52.0); Hemoglobin 7.8 GM/DL (14.0-18.0); Immature Granulocytes % 0.8 %; Immature Granulocytes Absolute 0.06 #; Lymphocytes # 1.2 10*3/uL (1.4-4.0); Lymphocytes % 14.9 % (21.2-54.2); Mean Platelet Volume 10.5 FL (9.6-12.0); Monocytes % 17.9 % (1.7-12.7); NRBC # 0.13 10*3/uL; Neutrophils % 62.7 % (38.7-73.9); Platelet Count 241 T/CUMM (130-400); Red Cell Distribution Width 15.2 % (9.3-17.3); White Blood Count 7.8 T/CUMM (4-12)
[2020-08-07 05:56] LABS: Burr Cells Slight; Eosinophils 5 % (0-10); Hypochromasia 1+; Lymphocytes 12 % (20-55); Microcytosis 1+; Nucleated Red Blood Cells 2 (0-5); Ovalocytes Slight; Platelet Estimate Adequate; Segmented Neutrophils 72 % (50-85); Total Cells Counted 100
[2020-08-07 06:03] LABS: Osmolality,Calculated 291.4 MOS/KG (273-304)
[2020-08-07] MEDS ORDERED: ALBUTEROL/IPRATROPIUM 3 ML NEB RESP TX STA (07:11)
[2020-08-07] MEDS ORDERED: ALBUTEROL/IPRATROPIUM 3 ML NEB RESP TX ONE (07:15)
[2020-08-07] MEDS: INSULIN LISPRO 100 UNIT/ML SUBCUT SCH ×4 (07:21→20:51)
[2020-08-07] MEDS ORDERED: SODIUM CHLORIDE 0.9% 1,000 ML IV PRN (07:25)
[2020-08-07] MEDS ORDERED: FUROSEMIDE 20 MG/2 ML VIAL IV PRN (07:25)
[2020-08-07] MEDS ORDERED: LIDOCAINE 2% 5 ML VIAL ONE (07:59)
[2020-08-07] MEDS ORDERED: propofoL 200 MG/20 ML VIAL IV ONE (07:59)
[2020-08-07] MEDS ORDERED: ETOMIDATE 20 MG/10 ML VIAL IV ONE ×3 (07:59→08:25)
[2020-08-07] MEDS ORDERED: ePHEDrine 50 MG/ML VIAL ONE (08:15)
[2020-08-07] MEDS ORDERED: ALBUMIN 5% 0 GM/0 ML VIAL IV ONE (08:20)
[2020-08-07] MEDS ORDERED: PHENYLEPHRINE 1 MG/10 ML SYRINGE IV ONE (08:35)
[2020-08-07] MEDS: PANTOPRAZOLE 40 MG VIAL IV SCH ×2 (09:30→20:45)
[2020-08-07] MEDS: PREGABALIN 50 MG CAPSULE PO SCH ×2 (09:31→20:43)
[2020-08-07] MEDS: SOTALOL 80 MG TABLET PO SCH ×2 (09:31→20:45)
[2020-08-07] MEDS: ASCORBIC ACID 500 MG TABLET PO SCH (09:31)
[2020-08-07] MEDS: CARBIDOPA/LEVODOPA 25-100 MG TABLET PO SCH ×4 (09:31→20:43)
[2020-08-07] MEDS: MAGNESIUM CHLORIDE 64 MG TABLET PO SCH ×2 (09:31→20:42)
[2020-08-07] MEDS: MULTIVITAMIN (CENTRUM) TABLET PO SCH (09:31)
[2020-08-07] MEDS: SODIUM CHLORIDE 0.9% 1,000 ML IV SCH ×3 (09:35→17:28)
[2020-08-07 18:04] LABS: Hematocrit 31.8 VOL% (42.0-52.0); Hemoglobin 9.8 GM/DL (14.0-18.0)
[2020-08-07] MEDS: ATORVASTATIN 40 MG TABLET PO SCH (20:43)
[2020-08-08] MEDS: SODIUM CHLORIDE 0.9% 1,000 ML IV SCH ×3 (01:42→17:24)
[2020-08-08 04:31] LABS: Basophils # 0.1 10*3/uL (0.0-0.2); Eosinophils # 0.2 10*3/uL (0.0-0.87); Eosinophils % 2.9 % (0.00-10.9); Hematocrit 28.2 VOL% (42.0-52.0); Hemoglobin 8.9 GM/DL (14.0-18.0); Immature Granulocytes % 0.5 %; Immature Granulocytes Absolute 0.04 #; Lymphocytes # 1.1 10*3/uL (1.4-4.0); Lymphocytes % 13.2 % (21.2-54.2); Mean Corpuscular HGB Conc 31.6 GM/DL (32-36); Mean Corpuscular Volume 90.1 FL (87-102); Mean Platelet Volume 10.4 FL (9.6-12.0); Monocytes % 18.1 % (1.7-12.7); NRBC # 0.15 10*3/uL; Neutrophils % 64.3 % (38.7-73.9); Platelet Count 235 T/CUMM (130-400); Red Blood Count 3.13 MC/CUMM (3.8-5.5); Red Cell Distribution Width 15.8 % (9.3-17.3)
[2020-08-08 04:48] LABS: Eosinophils 2 % (0-10); Lymphocytes 12 % (20-55); Nucleated Red Blood Cells 1 (0-5); Platelet Estimate Adequate; Segmented Neutrophils 66 % (50-85); Total Cells Counted 100
[2020-08-08 04:49] LABS: Hypochromasia 1+; Microcytosis 1+; Ovalocytes Slight
[2020-08-08 05:06] LABS: Calcium 7.8 MG/DL (8.5-10.1); Osmolality,Calculated 291.7 MOS/KG (273-304); Potassium 3.9 MMOL/L (3.5-5.1)
[2020-08-08] MEDS: MAGNESIUM CHLORIDE 64 MG TABLET PO SCH ×2 (08:41→21:13)
[2020-08-08] MEDS: SOTALOL 80 MG TABLET PO SCH ×2 (08:41→21:13)
[2020-08-08] MEDS: CARBIDOPA/LEVODOPA 25-100 MG TABLET PO SCH ×4 (08:41→21:19)
[2020-08-08] MEDS: PREGABALIN 50 MG CAPSULE PO SCH ×2 (08:41→21:13)
[2020-08-08] MEDS: MULTIVITAMIN (CENTRUM) TABLET PO SCH (08:41)
[2020-08-08] MEDS: ASCORBIC ACID 500 MG TABLET PO SCH (08:41)
[2020-08-08] MEDS: INSULIN LISPRO 100 UNIT/ML SUBCUT SCH ×4 (09:28→21:16)
[2020-08-08] MEDS: PANTOPRAZOLE 40 MG VIAL IV SCH ×2 (09:29→21:14)
[2020-08-08 12:13] LABS: Hematocrit 27.2 VOL% (42.0-52.0); Hemoglobin 8.7 GM/DL (14.0-18.0)
[2020-08-08] MEDS: BISACODYL 5 MG TABLET PO SCH (17:24)
[2020-08-08] MEDS ORDERED: POLYETHYLENE GLYCOL POWDER 255 GM BOTTLE PO ONE (18:00)
[2020-08-08] MEDS ORDERED: MAGNESIUM CITRATE 300 ML BOTTLE PO ONE (21:00)
[2020-08-08] MEDS: ATORVASTATIN 40 MG TABLET PO SCH (21:13)
[2020-08-09 01:13] LABS: Hematocrit 31.5 VOL% (42.0-52.0); Hemoglobin 9.6 GM/DL (14.0-18.0)
[2020-08-09] MEDS: BISACODYL 5 MG TABLET PO SCH ×2 (02:22→15:05)
[2020-08-09] MEDS: SODIUM CHLORIDE 0.9% 1,000 ML IV SCH ×3 (02:24→18:48)
[2020-08-09 03:56] LABS: Basophils # 0.1 10*3/uL (0.0-0.2); Basophils % 0.7 % (0.0-0.8); Eosinophils # 0.1 10*3/uL (0.0-0.87); Eosinophils % 0.9 % (0.00-10.9); Hematocrit 27.5 VOL% (42.0-52.0); Hemoglobin 8.8 GM/DL (14.0-18.0); Immature Granulocytes % 0.5 %; Immature Granulocytes Absolute 0.05 #; Lymphocytes # 0.8 10*3/uL (1.4-4.0); Lymphocytes % 8.5 % (21.2-54.2); Mean Corpuscular Volume 89.6 FL (87-102); Mean Platelet Volume 10.3 FL (9.6-12.0); Monocytes % 13.7 % (1.7-12.7); NRBC # 0.12 10*3/uL; Neutrophils % 75.7 % (38.7-73.9); Platelet Count 219 T/CUMM (130-400); Red Blood Count 3.07 MC/CUMM (3.8-5.5); White Blood Count 9.6 T/CUMM (4-12)
[2020-08-09 04:18] LABS: Calcium 8.1 MG/DL (8.5-10.1); Osmolality,Calculated 288.5 MOS/KG (273-304); Potassium 3.8 MMOL/L (3.5-5.1)
[2020-08-09 04:32] LABS: INR 1.3; PT Patient Result 14.2 SECS (10.5-12.0)
[2020-08-09] MEDS ORDERED: SODIUM CHLORIDE 0.9% 1,000 ML IV SCH (07:00)
[2020-08-09] MEDS: INSULIN LISPRO 100 UNIT/ML SUBCUT SCH ×4 (09:10→21:29)
[2020-08-09] MEDS ORDERED: LIDOCAINE 2% 5 ML VIAL ONE (11:10)
[2020-08-09] MEDS ORDERED: propofoL 200 MG/20 ML VIAL IV ONE (11:10)
[2020-08-09] MEDS ORDERED: ETOMIDATE 20 MG/10 ML VIAL IV ONE (11:41)
[2020-08-09] MEDS ORDERED: PHENYLEPHRINE 10 MG/1 ML VIAL IV ONE ×2 (11:45→11:46)
[2020-08-09] MEDS ORDERED: SODIUM CHLORIDE 0.9% 250 ML IV ONE (11:47)
[2020-08-09] MEDS ORDERED: LACTATED RINGERS 1,000 ML IV SCH (12:59)
[2020-08-09] MEDS: CARBIDOPA/LEVODOPA 25-100 MG TABLET PO SCH ×4 (14:02→21:23)
[2020-08-09] MEDS: PANTOPRAZOLE 40 MG VIAL IV SCH ×2 (14:08→21:23)
[2020-08-09] MEDS: MULTIVITAMIN (CENTRUM) TABLET PO SCH (14:09)
[2020-08-09] MEDS: ASCORBIC ACID 500 MG TABLET PO SCH (14:09)
[2020-08-09] MEDS: MAGNESIUM CHLORIDE 64 MG TABLET PO SCH ×2 (14:09→21:23)
[2020-08-09] MEDS: SOTALOL 80 MG TABLET PO SCH ×2 (14:09→21:23)
[2020-08-09] MEDS: PREGABALIN 50 MG CAPSULE PO SCH ×2 (14:10→21:23)
[2020-08-09] MEDS: ATORVASTATIN 40 MG TABLET PO SCH (21:23)
[2020-08-10] MEDS: SODIUM CHLORIDE 0.9% 1,000 ML IV SCH ×2 (02:00→10:07)
[2020-08-10 04:36] LABS: Basophils % 0.4 % (0.0-0.8); Eosinophils # 0.1 10*3/uL (0.0-0.87); Eosinophils % 0.9 % (0.00-10.9); Hematocrit 25.5 VOL% (42.0-52.0); Hemoglobin 8.1 GM/DL (14.0-18.0); Immature Granulocytes % 0.5 %; Immature Granulocytes Absolute 0.06 #; Lymphocytes % 8.8 % (21.2-54.2); Mean Corpuscular HGB Conc 31.8 GM/DL (32-36); Mean Corpuscular Volume 90.4 FL (87-102); Mean Platelet Volume 10.6 FL (9.6-12.0); Monocytes % 14.8 % (1.7-12.7); NRBC # 0.16 10*3/uL; Neutrophils % 74.6 % (38.7-73.9); Platelet Count 216 T/CUMM (130-400); Red Blood Count 2.82 MC/CUMM (3.8-5.5); Red Cell Distribution Width 16.4 % (9.3-17.3); White Blood Count 11.2 T/CUMM (4-12)
[2020-08-10 05:33] LABS: Calcium 7.7 MG/DL (8.5-10.1); Osmolality,Calculated 286.8 MOS/KG (273-304); Potassium 4.3 MMOL/L (3.5-5.1)
[2020-08-10] MEDS: INSULIN LISPRO 100 UNIT/ML SUBCUT SCH ×4 (07:33→20:42)
[2020-08-10] MEDS: MULTIVITAMIN (CENTRUM) TABLET PO SCH (08:41)
[2020-08-10] MEDS: MAGNESIUM CHLORIDE 64 MG TABLET PO SCH ×2 (08:41→20:42)
[2020-08-10] MEDS: PREGABALIN 50 MG CAPSULE PO SCH ×2 (08:41→20:42)
[2020-08-10] MEDS: ASCORBIC ACID 500 MG TABLET PO SCH ×2 (08:42)
[2020-08-10] MEDS: PANTOPRAZOLE 40 MG VIAL IV SCH (08:42)
[2020-08-10] MEDS: CARBIDOPA/LEVODOPA 25-100 MG TABLET PO SCH ×4 (08:42→20:42)
[2020-08-10] MEDS: SOTALOL 80 MG TABLET PO SCH ×2 (08:42→20:42)
[2020-08-10] MEDS ORDERED: ACETAMINOPHEN 325 MG TABLET PO PRN (10:05)
[2020-08-10] MEDS ORDERED: FUROSEMIDE 20 MG/2 ML VIAL IV ONE ×2 (11:39→18:00)
[2020-08-10 12:02] LABS: Hematocrit 23.6 VOL% (42.0-52.0); Hemoglobin 7.3 GM/DL (14.0-18.0)
[2020-08-10] MEDS ORDERED: SODIUM CHLORIDE 0.9% 1,000 ML IV PRN (13:20)
[2020-08-10] MEDS: PANTOPRAZOLE 40 MG TABLET PO SCH (18:48)
[2020-08-10] MEDS: ATORVASTATIN 40 MG TABLET PO SCH (20:42)
[2020-08-11 02:07] LABS: Basophils # 0.1 10*3/uL (0.0-0.2); Basophils % 0.5 % (0.0-0.8); Eosinophils # 0.1 10*3/uL (0.0-0.87); Eosinophils % 1.3 % (0.00-10.9); Hematocrit 28.4 VOL% (42.0-52.0); Hemoglobin 8.9 GM/DL (14.0-18.0); Immature Granulocytes % 0.4 %; Immature Granulocytes Absolute 0.04 #; Lymphocytes # 1.1 10*3/uL (1.4-4.0); Lymphocytes % 11.1 % (21.2-54.2); Mean Corpuscular HGB Conc 31.3 GM/DL (32-36); Mean Corpuscular Volume 92.5 FL (87-102); Mean Platelet Volume 10.1 FL (9.6-12.0); Monocytes % 16.9 % (1.7-12.7); NRBC # 0.16 10*3/uL; Neutrophils % 69.8 % (38.7-73.9); Platelet Count 213 T/CUMM (130-400); Red Blood Count 3.07 MC/CUMM (3.8-5.5); Red Cell Distribution Width 15.9 % (9.3-17.3); White Blood Count 10.2 T/CUMM (4-12)
[2020-08-11 02:50] LABS: Band Neutrophils 2 % (0-10); Lymphocytes 12 % (20-55); Nucleated Red Blood Cells 2 (0-5); Segmented Neutrophils 73 % (50-85)
[2020-08-11 02:51] LABS: Platelet Estimate Normal; Polychromasia 1+
[2020-08-11 02:52] LABS: Burr Cells 2+
[2020-08-11 02:54] LABS: Total Cells Counted 100
[2020-08-11 02:55] LABS: Ovalocytes 1+
[2020-08-11] MEDS: PANTOPRAZOLE 40 MG TABLET PO SCH ×2 (05:39→17:38)
[2020-08-11] MEDS: INSULIN LISPRO 100 UNIT/ML SUBCUT SCH ×4 (07:47→20:46)
[2020-08-11] MEDS ORDERED: FUROSEMIDE 20 MG/2 ML VIAL IV ONE ×3 (08:28→10:50)
[2020-08-11] MEDS: SOTALOL 80 MG TABLET PO SCH ×2 (08:50→20:48)
[2020-08-11] MEDS: ASCORBIC ACID 500 MG TABLET PO SCH (08:50)
[2020-08-11] MEDS: MAGNESIUM CHLORIDE 64 MG TABLET PO SCH ×2 (08:50→20:47)
[2020-08-11] MEDS: PREGABALIN 50 MG CAPSULE PO SCH ×2 (08:50→20:48)
[2020-08-11] MEDS: MULTIVITAMIN (CENTRUM) TABLET PO SCH (08:50)
[2020-08-11] MEDS: CARBIDOPA/LEVODOPA 25-100 MG TABLET PO SCH ×4 (09:40→20:47)
[2020-08-11] MEDS ORDERED: diphenhydrAMINE 50 MG/1 ML VIAL IV ONE (13:26)
[2020-08-11] MEDS ORDERED: diphenhydrAMINE 50 MG/1 ML VIAL IV PRN (13:26)
[2020-08-11 16:48] LABS: Hematocrit 28.7 VOL% (42.0-52.0)
[2020-08-11] MEDS: ATORVASTATIN 40 MG TABLET PO SCH (20:48)
[2020-08-12 05:37] LABS: Basophils # 0.1 10*3/uL (0.0-0.2); Basophils % 1.1 % (0.0-0.8); Eosinophils # 0.3 10*3/uL (0.0-0.87); Eosinophils % 3.3 % (0.00-10.9); Hematocrit 26.4 VOL% (42.0-52.0); Hemoglobin 8.3 GM/DL (14.0-18.0); Immature Granulocytes % 0.2 %; Immature Granulocytes Absolute 0.02 #; Lymphocytes # 0.9 10*3/uL (1.4-4.0); Lymphocytes % 11.4 % (21.2-54.2); Mean Corpuscular HGB Conc 31.4 GM/DL (32-36); Mean Corpuscular Volume 90.1 FL (87-102); Mean Platelet Volume 10.1 FL (9.6-12.0); Monocytes % 15.7 % (1.7-12.7); NRBC # 0.14 10*3/uL; Neutrophils % 68.3 % (38.7-73.9); Platelet Count 191 T/CUMM (130-400); Red Blood Count 2.93 MC/CUMM (3.8-5.5); Red Cell Distribution Width 16.1 % (9.3-17.3); White Blood Count 8.3 T/CUMM (4-12)
[2020-08-12 05:54] LABS: Calcium 7.9 MG/DL (8.5-10.1); Osmolality,Calculated 294.3 MOS/KG (273-304); Potassium 3.9 MMOL/L (3.5-5.1)
[2020-08-12] MEDS: PANTOPRAZOLE 40 MG TABLET PO SCH (05:55)
[2020-08-12 06:26] LABS: Eosinophils 4 % (0-10); Hypochromasia Slight; Lymphocytes 13 % (20-55); Nucleated Red Blood Cells 1 (0-5); Platelet Estimate Normal; Segmented Neutrophils 74 % (50-85); Total Cells Counted 100
[2020-08-12] MEDS: INSULIN LISPRO 100 UNIT/ML SUBCUT SCH ×2 (08:15→13:52)
[2020-08-12] MEDS: MULTIVITAMIN (CENTRUM) TABLET PO SCH (08:32)
[2020-08-12] MEDS: MAGNESIUM CHLORIDE 64 MG TABLET PO SCH (08:32)
[2020-08-12] MEDS: ASCORBIC ACID 500 MG TABLET PO SCH (08:32)
[2020-08-12] MEDS: CARBIDOPA/LEVODOPA 25-100 MG TABLET PO SCH ×2 (08:33→14:10)
[2020-08-12] MEDS: PREGABALIN 50 MG CAPSULE PO SCH (08:33)
[2020-08-12] MEDS: SOTALOL 80 MG TABLET PO SCH (08:33)
[2020-08-12] MEDS ORDERED: FUROSEMIDE 40 MG/4 ML VIAL IV SCH (09:00)
[2020-08-12 10:06] LABS: Hematocrit 27.6 VOL% (42.0-52.0); Hemoglobin 8.7 GM/DL (14.0-18.0)
[2020-08-12] MEDS ORDERED: FUROSEMIDE 20 MG/2 ML VIAL IV ONE (11:39)
[2020-08-12 15:33] VITALS: BP 118/63
== END 2020-08-12 16:30 | disposition home or self-care (01) | DRG 377 ==
LOC: N.ED 15:03 → N.EDINP 17:05 → N.5E 08-06 08:23
PROVIDERS: ADMIT Internal Medicine; ATTEND Internal Medicine
PROC: COLONHP (2020-08-09 12:05)